=== PATIENT | female | born 1955 | race Caucasian/White ===

== ENCOUNTER 2018-08-28 01:35 | Emergency (ER) | payer OTHER ==
[~2018-08-28] VITALS: Ht 165.1 cm; Wt 102.1 kg
[2018-08-28 01:44] VITALS: BP 137/90
--- NOTE | 2018-08-28 01:48 | NUR ---
PT AMBULATED TO BED 11.
--- NOTE | 2018-08-28 01:52 | NUR ---
BIB DAUGHTER WITH REPORTS OF DIARRHEA X 4 DAYS. HX OF LOW K. STATES PATIENT HAS BEEN DRINKING PEDIALYTE AT HOME. PATIENT STATES PAIN IN LOWER ABD ON BOTH SIDES. PATIENT ON MONITOR , VSS. NO OTHER SYMPTOMS REPORTED. BED IN LOW LOCKED POSITION WITH SIDE RAILS X1. Addendum: 08/28/18 at 0216 by ADAM PATIENT ALSO REPORTS GENERALIZED WEAKNESS X 2 DAYS.
[2018-08-28] MEDS ORDERED: NACL 0.9% 1,000 ML IV ONE ×2 (01:55→03:25)
--- NOTE | 2018-08-28 02:01 | NUR ---
DR. CLARK BEDSIDE EVALUATING PT
--- NOTE | 2018-08-28 02:05 | NUR ---
BLOOD AND URINE COLLECTED AND SENT TO LAB.
[2018-08-28 02:12] LABS: APPEARANCE,URINE SL CLOUDY (CLEAR); BILIRUBIN,URINE 1+ (NEGATIVE); BLOOD, URINE NEGATIVE (NEGATIVE); COLOR,URINE ORANGE (YELLOW); LEUKOCYTE ESTERASE ,URINE NEGATIVE (NEGATIVE); NITRITE, URINE NEGATIVE (NEGATIVE); UGLUCOSE NEGATIVE (NEGATIVE)
[2018-08-28 02:12] LABS: BASOPHILS # (AUTO) 0.1 K/uL (0.00-0.22); BASOPHILS % (AUTO) 1.1 % (0.0-2.0); EOSINOPHILS # (AUTO) 0.3 K/uL (0-0.4); EOSINOPHILS % (AUTO) 6.2 % (0.0-4.0); HEMOGLOBIN 13.6 g/dL (12.0-16.0); LYMPHOCYTES # (AUTO) 1.5 K/uL (2.5-16.5); LYMPHOCYTES % (AUTO) 26.8 % (20.5-51.1); MEAN CORPUSCULAR HEMOGLOBIN 31 pg (27-31); MEAN CORPUSCULAR HGB CONC 34 g/dL (33-37); MEAN CORPUSCULAR VOLUME 92.3 fL (80-94); MONOCYTES % (AUTO) 17.2 % (1.7-9.3); NEUTROPHILS # (AUTO) 2.8 K/uL (1.8-7.7); NEUTROPHILS % (AUTO) 48.7 % (42.2-75.2); PLATELET COUNT (AUTO) 77 K/uL (140-450); RED BLOOD CELL COUNT(AUTO) 4.33 MIL/uL (4.20-5.40); RED CELL DISTRIBUTION WIDTH 14.5 % (11.6-13.7); WHITE BLOOD COUNT (AUTO) 5.6 K/uL (4.8-10.8)
[2018-08-28 02:22] LABS: WBC,URINE 0-5 /HPF (0-5)
[2018-08-28 02:23] LABS: URINE AMORPHOUS URATE 1+ /HPF (None Seen)
[2018-08-28 02:24] LABS: RBC,URINE 0-5 /HPF (0-5)
[2018-08-28 02:28] LABS: HYALINE CASTS, URINE 0-10 /LPF (None Seen)
[2018-08-28 02:33] LABS: ALBUMIN 2.8 g/dL (3.4-5.0); ANION GAP 13.1 (8-16); CARBON DIOXIDE 22.3 mmol/L (21-32); CREATININE 1.5 mg/dL (0.6-1.3); POTASSIUM 4.4 mmol/L (3.5-5.1); TOTAL BILIRUBIN 1.5 mg/dL (0.0-1.0)
--- NOTE | 2018-08-28 02:38 | NUR ---
PATEINT BACK FROM CT IN WHEELCHAIR, HOOKED BACK UP TO MONITOR.
[2018-08-28 04:13] VITALS: BP 148/60
== END 2018-08-28 04:13 | disposition home or self-care (01) ==
LOC: MED 01:35
DX: R19.7 Diarrhea, unspecified (principal)
CPT/HCPCS: 36415; 80053; 81001; 83690; 85025; 87086; 96360; 96361; 99284; J7030

== ENCOUNTER 2020-10-30 18:42 | Emergency (ER) | payer BC, OTHER ==
[~2020-10-30] VITALS: Ht 165.1 cm; Wt 113.4 kg
[2020-10-30 18:50] VITALS: BP 165/78
--- NOTE | 2020-10-30 18:50 | NUR ---
TO BED AMBULATORY
--- NOTE | 2020-10-30 19:10 | NUR ---
64 YO FEMALE BIB SELF ACCOMPANIED BY DAUGHTER. C/O HEADACHE 6/10 ACHING, NON RADIATING. ALSO C/O DIZZINESS. S/S STARTED ON FRIDAY. PT "JUST WANTS TO SIT DOWN, SAYS OBJECTS APPEAR UPSIDE DOWN, FEELS WEAK, ON SAT COULD NOT SEPERATE FINGERS". PT ALSO C/O NAUSEA SINCE FRIDAY, AND NOT EATING MUCH. DENIES VOMITING, DENIES DIARRHEA, DENIES SOB. PT DENIES SYNCOPAL EPISODES, ROM & SENSATION INTACT. A&OX4, RR EVEN AND UNLABORED. PMH: HTN, HIGH CHOLESTEROL ALLERGIES: NKDA
--- NOTE | 2020-10-30 19:24 | NUR ---
PATIENT LAYING IN BED LOCKED IN LOWEST POSITION X2 SIDE RAILS UP FOR PATIENT SAFETY. PATIENT REPORTS SHE FEELS DIZZY AND WEEK WITH A TEMPORAL HEADACHE 6/10. DENIES BLURRY VISION. PATIENT IS AOX4, GCS 15, MILD WEAKNESS TO BACK GRAY CLOTH WASHER, NO ARMS OR LEGS DRIFT. PATIWNT CONNECTED TO MONITOR AT 60HR, 96 O2, 16RR, 155/77 BP. WILL CONTINUE TO MONITOR. DAUGHTER AT BEDSIDE.
--- NOTE | 2020-10-30 19:28 | NUR ---
REPORTS RECEIVED FROM NIMISHA JOSEPH FROM CONTINUATION OF PATIENT CARE AT THIS TIME.
--- NOTE | 2020-10-30 19:28 | NUR ---
REPORT AND TRANSFER OF CARE ENDORSED TO NIMISHA ROSARIO.
[2020-10-30 20:16] LABS: BASOPHILS # (AUTO) 0.1 K/uL (0.00-0.22); BASOPHILS % (AUTO) 1.3 % (0.0-2.0); EOSINOPHILS # (AUTO) 0.4 K/uL (0-0.4); EOSINOPHILS % (AUTO) 8.9 % (0.0-4.0); HEMATOCRIT 36.6 % (36-48); HEMOGLOBIN 12.6 g/dL (12.0-16.0); LYMPHOCYTES # (AUTO) 1.4 K/uL (2.5-16.5); LYMPHOCYTES % (AUTO) 28.7 % (20.5-51.1); MEAN CORPUSCULAR HEMOGLOBIN 33 pg (27-31); MEAN CORPUSCULAR HGB CONC 35 g/dL (33-37); MEAN CORPUSCULAR VOLUME 95.1 fL (80-94); MONOCYTES # (AUTO) 0.8 K/uL (0.8-1.0); MONOCYTES % (AUTO) 16.5 % (1.7-9.3); NEUTROPHILS # (AUTO) 2.2 K/uL (1.8-7.7); NEUTROPHILS % (AUTO) 44.6 % (42.2-75.2); PLATELET COUNT (AUTO) 65 K/uL (140-450); RED BLOOD CELL COUNT(AUTO) 3.85 MIL/uL (4.20-5.40); RED CELL DISTRIBUTION WIDTH 14.7 % (11.6-13.7)
[2020-10-30 20:28] LABS: ALBUMIN 2.7 g/dL (3.4-5.0); ANION GAP 13.2 (8-16); CARBON DIOXIDE 21.8 mmol/L (21-32); TOTAL BILIRUBIN 2.1 mg/dL (0.0-1.0)
[2020-10-30 20:46] LABS: PROTHROMBIN TIME 11.2 secs (10.8-13.4)
--- NOTE | 2020-10-30 22:00 | NUR ---
PATIENT AMBULATED TO BATHROOM W STEADY GAIT.
[2020-10-30 22:22] LABS: APPEARANCE,URINE CLEAR (CLEAR); BILIRUBIN,URINE NEGATIVE (NEGATIVE); BLOOD, URINE NEGATIVE (NEGATIVE); COLOR,URINE YELLOW (YELLOW); LEUKOCYTE ESTERASE ,URINE NEGATIVE (NEGATIVE); NITRITE, URINE NEGATIVE (NEGATIVE); UGLUCOSE NEGATIVE (NEGATIVE)
[2020-10-30] MEDS: ASPIRIN 81 MG TAB.CHEW PO ONE (22:23)
--- NOTE | 2020-10-31 01:06 | NUR ---
NATALIA COMPLETED AND HANDED TO WANDA FROM LAB.
[2020-10-31] MEDS: LACTULOSE 20 GM/30 ML UDC PO ONE (02:38)
--- NOTE | 2020-10-31 03:00 | NUR ---
PATIENT LAYING IN BED L LATERAL POSITION, W EYES CLOSED. BED LOCKED IN LOWEST POSITION, X2 SIDERAILS UP FPR PATIENT SAFETY. PATIENT CONNECTED TO MONITOR W VSS. BREATHING EVEN AND UNLABORED. WILL CONTINUE TO MONITOR. DAUGHTER AT BEDSIDE.
--- NOTE | 2020-10-31 04:25 | NUR ---
Patient ambulated to bathroom w steady gait and slight assitance from daughter.
--- NOTE | 2020-10-31 05:50 | NUR ---
PATIENT AMBULATED TO BATHROOM W STEADY GAIT.
--- NOTE | 2020-10-31 07:22 | NUR ---
Pt report given to NIMISHA WASHINGTON. Transfer of care at this time.
--- NOTE | 2020-10-31 07:33 | NUR ---
Report called to NIMISHA Salazar from [facility] for transfer of patient care at this time.
--- NOTE | 2020-10-31 07:35 | NUR ---
ASSUMED CARE, REPORT FROM ABRAHAM BANSAL, PATIENT RECEIVED RESTING QUIETLY LAYING ON RIGHT SIDE WITH EVEN AND UNLABORED RESP, DENIES PAIN, VITAL SIGNS STABLE, DAUGHTER AT SIDE, AWAITING TRANSPORT TO [facility] FOR REPATRIATION AND FURTHER EVAL. REPORT CALLED TO RECEIVING NURSE BY ABRAHAM BANSAL.
--- NOTE | 2020-10-31 09:06 | NUR ---
UP TO BR WITH ASSIST, AMBULATED WITH SLOW STEADY GAIT, DENIES WEAKNESS OR DIZZINESS.
--- NOTE | 2020-10-31 09:25 | NUR ---
PREPARED FOR TRANSPORT, CONSENT INCHAIRT, FACILITY NOTIFIED OF REPATRIATION TRANSFER, BELONGINGS ARE WITH FAMILY,CHART PROVIDED TO MEDICS. VS UPDATED.
--- NOTE | 2020-10-31 09:30 | NUR ---
[facility] CREW ARRIVED FOR TRANSPORT, PATIENTS DX AND TELE REQUIRE AN ACLS CREW. TRANSPORT DELAYED WITH ETA OF 120 MINUTES FAMILY AND PATIENT UPDATED.
--- NOTE | 2020-10-31 11:56 | NUR ---
RESTING AWAITING ACLS TRANSPORT, LUNCH PROVIDED.
--- NOTE | 2020-10-31 14:09 | NUR ---
[facility]LS TRANSPORT TEAM HERE, REPORT PROVIDED, VS UPDATED. LOADED TO [facility] IN STABLE CONDITION. FAMILY PROVIDED ADDRESS AND DIRECTIONS TO [facility].
[2020-10-31 14:21] VITALS: BP 163/82
--- NOTE | 2020-10-31 14:24 | NUR ---
Patient to be transferred to [facility]. TRANSPORTED ACLS IN STABLE CONDITION.
== END 2020-10-31 14:21 | disposition short-term general hospital (02) ==
LOC: MED 18:42
DX: I21.4 Non-ST elevation (NSTEMI) myocardial infarction (principal); R53.1 Weakness; I10 Essential (primary) hypertension; E78.5 Hyperlipidemia, unspecified
CPT/HCPCS: 36415; 70450; 71045; 80053; 81003; 82140; 84484; 85025; 85610; 85730; 93005; 99285

== ENCOUNTER 2021-02-19 13:45 | Inpatient (IN) | payer BC, SELFPAY ==
[~2021-02-19] VITALS: Ht 165.1 cm; Wt 105.2 kg
[2021-02-19 14:16] VITALS: BP 173/97
[2021-02-19] MEDS ORDERED: MORPHINE SULFATE 2 MG/ML SYR IVP ONE (14:55)
[2021-02-19] MEDS ORDERED: NACL 0.9% 500 ML IV ONE (14:55)
[2021-02-19] MEDS ORDERED: ONDANSETRON 4 MG/2 ML VIAL IVP ONE ×2 (14:55→17:45)
--- NOTE | 2021-02-19 15:28 | NUR ---
LAB AT BEDSIDE.
--- NOTE | 2021-02-19 15:30 | NUR ---
65 Y/O F HERE FOR ABD PAIN, N/VFOR 2 DAYS. SHE ALSO COMPLAINS OF NO BM FOR 3DAYS EVEN AFTER TAKING STOOL SOFTENER. GRANDAUGTHER AT BEDSIDE TRANSLATING FOR THE PATIENT. LALY HS: HT, CHOLESTEROL, CIRRHOSIS
[2021-02-19 15:42] LABS: BASOPHILS % (AUTO) 0.5 % (0.0-2.0); EOSINOPHILS % (AUTO) 0.2 % (0.0-4.0); HEMATOCRIT 38.6 % (36-48); HEMOGLOBIN 13.3 g/dL (12.0-16.0); LYMPHOCYTES # (AUTO) 0.6 K/uL (2.5-16.5); LYMPHOCYTES % (AUTO) 8.3 % (20.5-51.1); MEAN CORPUSCULAR HEMOGLOBIN 33 pg (27-31); MEAN CORPUSCULAR HGB CONC 35 g/dL (33-37); MEAN CORPUSCULAR VOLUME 96.2 fL (80-94); MONOCYTES # (AUTO) 0.7 K/uL (0.8-1.0); MONOCYTES % (AUTO) 9.5 % (1.7-9.3); NEUTROPHILS # (AUTO) 5.9 K/uL (1.8-7.7); NEUTROPHILS % (AUTO) 81.5 % (42.2-75.2); PLATELET COUNT (AUTO) 72 K/uL (140-450); RED BLOOD CELL COUNT(AUTO) 4.01 MIL/uL (4.20-5.40); RED CELL DISTRIBUTION WIDTH 14.7 % (11.6-13.7); WHITE BLOOD COUNT (AUTO) 7.2 K/uL (4.8-10.8)
--- NOTE | 2021-02-19 15:50 | NUR ---
DR. DE LA ROSA AT PT BEDSIDE FOR ULTRASOUND IV.
[2021-02-19 15:57] LABS: ALBUMIN 2.8 g/dL (3.4-5.0); CARBON DIOXIDE 23.7 mmol/L (21-32); CREATININE 1.5 mg/dL (0.6-1.3); POTASSIUM 4.7 mmol/L (3.5-5.1); TOTAL BILIRUBIN 3.7 mg/dL (0.0-1.0)
[2021-02-19] MEDS ORDERED: ONDANSETRON 4 MG/2 ML VIAL ONE ×2 (16:06→17:44)
[2021-02-19] MEDS ORDERED: MORPHINE SULFATE 2 MG/ML SYR ONE (16:06)
--- NOTE | 2021-02-19 16:47 | NUR ---
65 Y/O FEMALE C/O GENERALIZED ABDOMINAL PAIN 8/10 DESCRIBES ACHING NON-RADIATING BOWEL SOUNDS ACTIVE X4. DENIES N/V X 3 DAYS. PMH: HTN, HLD, GASTRIC ULCER, HERNIA NKA
--- NOTE | 2021-02-19 17:29 | NUR ---
PATIENT GOING TO CT SCAN.
--- NOTE | 2021-02-19 17:30 | NUR ---
URINE TAKEN TO THE LAB.
[2021-02-19 17:44] LABS: APPEARANCE,URINE CLEAR (CLEAR); BILIRUBIN,URINE 1+ (NEGATIVE); BLOOD, URINE NEGATIVE (NEGATIVE); COLOR,URINE ORANGE (YELLOW); LEUKOCYTE ESTERASE ,URINE NEGATIVE (NEGATIVE); NITRITE, URINE NEGATIVE (NEGATIVE); UGLUCOSE NEGATIVE (NEGATIVE)
[2021-02-19] MEDS ORDERED: METOCLOPRAMIDE 10 MG/2 ML INJ VIAL IVP ONE (18:20)
[2021-02-19] MEDS ORDERED: PRAV20TA6 PO (18:54)
[2021-02-19] MEDS ORDERED: OMEG-12 PO (18:57)
[2021-02-19] MEDS ORDERED: POTA10TA70 PO (18:57)
[2021-02-19] MEDS ORDERED: OMEP1CAP27 PO (18:57)
[2021-02-19] MEDS ORDERED: LACT10PA2 PO (18:58)
[2021-02-19] MEDS ORDERED: PROP20TA29 PO (18:59)
[2021-02-19] MEDS ORDERED: LOSA100T1 PO (18:59)
[2021-02-19] MEDS ORDERED: SPIR50TA PO (19:00)
[2021-02-19] MEDS ORDERED: METOCLOPRAMIDE 10 MG/2 ML INJ VIAL ONE (19:37)
--- NOTE | 2021-02-19 20:30 | NUR ---
14 IN LONG# 48 FR NG tube placed to LEFT nare. Placement checked by auscultation of instilled air into stomach and aspiration of gastric contents. Tubing taped in place to prevent dislodging. Patient tolerated WELL.
--- NOTE | 2021-02-19 20:42 | NUR ---
XRAY AT BEDSIDE
--- NOTE | 2021-02-19 20:59 | NUR ---
Patient appears to be resting comfortably in bed. Vital Signs within normal limits. Respirations even and unlabored. BOTH BED RAILS DOWN AND BED AT LOWEST POSITION.
--- NOTE | 2021-02-19 21:38 | NUR ---
SUCTIONING DONE ON PT, PT TOLERATED WELL.
[2021-02-19] MEDS ORDERED: MAG SULF 2000 MG/WATER PREMIX 50 ML IV PRN (22:30)
[2021-02-19] MEDS ORDERED: METOCLOPRAMIDE 10 MG/2 ML INJ VIAL IVP PRN (22:30)
[2021-02-19] MEDS: NACL 0.9% 1,000 ML IV SCH (22:30)
--- NOTE | 2021-02-19 22:32 | NUR ---
Patient will be admitted to care of BLAISE. Admited to MED/SURG. Will go to room 104 B. Belongings list completed. Report to BLAISE BANSAL.
--- NOTE | 2021-02-19 22:34 | NUR ---
Patient appears to be resting comfortably in bed. Vital Signs within normal limits. Respirations even and unlabored. Addendum: 02/19/21 at 2237 by [email or web address] Patient appears to be resting comfortably in bed. Vital Signs within normal limits. Respirations even and unlabored. BOTH BED RAILS UP AND BED AT LOWEST POSITION.
--- NOTE | 2021-02-19 23:50 | NUR ---
PATIENT WAS BROUGHT TO [facility] FROM ER WITH NG TUBE IN PLACE AND CONNECTED TO INTERMITTENT SUCTION. AAOX4. NO ACUTE DISTRESS NOTED. RESPIRATION EVEN UNLABORED. CC: RLQ ABDOMINAL PAIN. N/V, NO BM FOR 2 DAYS. DX: SMALL BOWEL OBSTRUCTION. PLACED COMFORTABLY IN BED. LUNGS CLEAR ON AUSCULTATION. BOWEL SOUNDS PRESENT IN ALL 4 QUADRANT. ALL SAFETY PRECAUTIONS ARE IN PLACE. CALL LIGHT WITHIN REACH. MRSA SCREENING DONE. NO IV LINE NOTED. WILL CONTINUE TO MONITOR.
--- NOTE | 2021-02-20 01:00 | NUR ---
STARTED A NEW PERIPHERAL IV ON THE RIGHT FOREARM. TOLERATED WELL. IVF NS AT 80 ML STARTED.
[2021-02-20] MEDS: ONDANSETRON 4 MG/2 ML VIAL IVP PRN ×3 (01:25→21:50)
[2021-02-20] MEDS: NACL 0.9% 1,000 ML IV SCH ×3 (01:58→18:34)
--- NOTE | 2021-02-20 02:55 | NUR ---
PATIENT ACCIDENTALLY PULLED OUT NG TUBE. INSERTED A NEW NG TUBE AND CONNECTED TO INTERMITTENT SUCTION. STAT CXR DONE TO VERIFY NG TUBE PLACEMENT, RESULTED NG TUBE IN PLACE. NO ACUTE DISTRESS NOTED.
[2021-02-20 04:00] VITALS: BP 154/69
[2021-02-20 06:52] LABS: BASOPHILS % (AUTO) 0.4 % (0.0-2.0); EOSINOPHILS % (AUTO) 0.5 % (0.0-4.0); HEMATOCRIT 36.4 % (36-48); HEMOGLOBIN 12.5 g/dL (12.0-16.0); LYMPHOCYTES # (AUTO) 0.9 K/uL (2.5-16.5); LYMPHOCYTES % (AUTO) 17.1 % (20.5-51.1); MEAN CORPUSCULAR HEMOGLOBIN 33 pg (27-31); MEAN CORPUSCULAR HGB CONC 34 g/dL (33-37); MEAN CORPUSCULAR VOLUME 96.5 fL (80-94); MONOCYTES # (AUTO) 0.9 K/uL (0.8-1.0); MONOCYTES % (AUTO) 16.1 % (1.7-9.3); NEUTROPHILS # (AUTO) 3.5 K/uL (1.8-7.7); NEUTROPHILS % (AUTO) 65.9 % (42.2-75.2); PLATELET COUNT (AUTO) 70 K/uL (140-450); RED BLOOD CELL COUNT(AUTO) 3.78 MIL/uL (4.20-5.40); RED CELL DISTRIBUTION WIDTH 14.4 % (11.6-13.7); WHITE BLOOD COUNT (AUTO) 5.3 K/uL (4.8-10.8)
[2021-02-20 07:13] LABS: ALBUMIN 2.5 g/dL (3.4-5.0); ANION GAP 13.7 (8-16); CARBON DIOXIDE 24.7 mmol/L (21-32); CREATININE 1.5 mg/dL (0.6-1.3); MAGNESIUM 1.6 mg/dL (1.8-2.4); POTASSIUM 4.4 mmol/L (3.5-5.1); TOTAL BILIRUBIN 3.6 mg/dL (0.0-1.0)
--- NOTE | 2021-02-20 07:30 | NUR ---
ENDORSED TO AM NURSE FOR CONTINUITY OF CARE. PT IS STABLE.
[2021-02-20 08:00] VITALS: BP 166/82
--- NOTE | 2021-02-20 08:00 | NUR ---
PATIENT HAS BEEN SCREENED AND CATEGORIZED MODERATE NUTRITION RISK. PATIENT WILL BE SEEN WITHIN 3-5 DAYS OF ADMISSION. 02/20/21 02/24/[address]
--- NOTE | 2021-02-20 08:50 | NUR ---
PATIENT AWAKE AND ALERT. NO ACUTE DISTRESS NOTED. PATIENT ON ROOM AIR. SCHEDULED MEDICATION GIVEN. DAUGHTER AT BEDSIDE. ALL SAFETY MEASURES IN PLACE. CALL LIGHT WITHIN REACH. WILL CONTINUE TO MONITOR.
[2021-02-20] MEDS ORDERED: PANTOPRAZOLE 40 MG INJ VIAL IVP SCH (09:00)
[2021-02-20] MEDS ORDERED: hydrALAZINE 20 MG/ML VIAL IVP PRN (09:00)
--- NOTE | 2021-02-20 09:00 | NUR ---
INFORM DR. MODI OF BLOOD PRESSURE OF 166/89 AND MD ASKED IF PT ON BP MEDS AT HOME INFORM THAT PT ON BP MEDS BUT NO NEW ORDER DUE TO NPO.
--- NOTE | 2021-02-20 10:47 | NUR ---
PT NOTED WITH VOMITING GIVEN ZOFRAN ORDERED.
--- NOTE | 2021-02-20 12:20 | NUR ---
PT ALERT NOT ON ANY DISTRESS . STILL NOTED WITH NAUSEA. SAFETY MEASURE IN PLACE. CALL LIGHT WITH IN EASY REACH. DAUGHTER AT BED SIDE. CALL LIGHT WITH IN REACH.
--- NOTE | 2021-02-20 14:25 | NUR ---
PT SLEEPING. NOT ON ANY DISTRESS . SAFETY MEASURE IN PLACE. CALL LIGHT WITH IN EASY REACH. DAUGHTER AT BED SIDE. CALL LIGHT WITH IN REACH.
[2021-02-20 16:00] VITALS: BP 169/78
--- NOTE | 2021-02-20 16:30 | NUR ---
PT ALERT ON STABLE CONDITION NOT ON ANY DISTRESS. SAFETY MEASURE IN PLACE. CALL LIGHT WITH IN EASY REACH. DAUGHTER AND SON AT BED SIDE. NO COMPLAIN OF NAUSEA OR VOMITING. DR. ELKINS REMOVED NGT SUCTION TOLERATED WELL.
[2021-02-20] MEDS: PIPERACILLIN/TAZOBACTAM 4.5 GM in DEXTROSE 5% 100 ML IV SCH (18:21)
--- NOTE | 2021-02-20 18:37 | NUR ---
DAUGHTER AT BED SIDE WITH PT REQUESTING FOR BED SIDE COMMODE REQUEST GRANTED. RESIDENT SITTING EATING WITH THE ASSISTANCE FROM DAUGHTER DUE TO TREMORS OF HER HAND. RESIDENT ON STABLE CONDITION . SAFETY MEASURE IN PLACE. CALL LIGHT WITH IN EASY REACH. WILL CONTINUE TO MONITOR.
--- NOTE | 2021-02-20 19:20 | NUR ---
PT ON STABLE CONDITION. GAVE REPORT NO NURSE NURSE FOR CONTINUITY OF CARE.
--- NOTE | 2021-02-20 19:21 | NUR ---
RECEIVED REPORT FROM AM NURSE. PATIENT IS AWAKE, NO S/S OF RESPIRATORY DISTRESS. RESPIRATION REGULAR UNLABORED. IVF NS RUNNING AT 80 ML ON THE RIGHT FOREARM. NO COMPLAINTS OF PAIN. SKIN WARM AND DRY TO THE TOUCH. DAUGHTER AT BEDSIDE. ON CLEAR LIQUID DIET. ALL SAFETY PRECAUTIONS ARE IN PLACE. CALL LIGHT WITHIN REACH.
[2021-02-20] MEDS: ATORVASTATIN 20 MG TAB PO SCH (20:56)
[2021-02-20] MEDS: ACETAMINOPHEN 325 MG TAB PO PRN (20:56)
--- NOTE | 2021-02-20 20:56 | NUR ---
DUE SCHEDULED MEDICATION GIVEN ORDERED.
[2021-02-20] MEDS ORDERED: MORPHINE SULFATE 2 MG/ML SYR IVP PRN (22:10)
--- NOTE | 2021-02-20 22:15 | NUR ---
PATIENT IN SEVERE ABDOMINAL PAIN 12/08 , PLACED A CALL TO DR. DÍAZ BLADDER TIER , CALLED BACK AFTER 2 MINS WITH ORDER OF MORPHIN 2MG EVERY 4 HRS PRN FOR SEVERE PAIN. ORDER NOTED AND CARRIED OUT.
[2021-02-21] VITALS: BP 165/74
[2021-02-21] MEDS: PIPERACILLIN/TAZOBACTAM 4.5 GM in DEXTROSE 5% 100 ML IV SCH ×3 (00:08→12:09)
--- NOTE | 2021-02-21 00:08 | NUR ---
ZOSYN ADMINISTERED PER MD ORDERED. NO SOB NOTED.
--- NOTE | 2021-02-21 02:08 | NUR ---
ROUNDED PT, PATIENT IS SLEEPING. NO S/S OF RESPIRATORY DISTRESS. CALL LIGHT WITHIN REACH.
[2021-02-21] MEDS: NACL 0.9% 1,000 ML IV SCH ×2 (04:36→14:36)
[2021-02-21] MEDS: ONDANSETRON 4 MG/2 ML VIAL IVP PRN ×4 (05:37→13:01)
--- NOTE | 2021-02-21 06:00 | NUR ---
STILL WAITING FOR MD CALL BACK, MADE REGINA ODOM AWARE OF THE SITUATION Addendum: 02/21/21 at 0624 by Robin Downing RN WRONG PATIENT
--- NOTE | 2021-02-21 06:15 | NUR ---
PAGED DR. CASTANEDA AGAIN. AWAITING FOR HIS CALL Addendum: 02/21/21 at 0624 by Robin Downing RN WRONG PATIENT
[2021-02-21 06:54] LABS: BASOPHILS % (AUTO) 0.4 % (0.0-2.0); EOSINOPHILS # (AUTO) 0.1 K/uL (0-0.4); EOSINOPHILS % (AUTO) 3.3 % (0.0-4.0); HEMATOCRIT 36.1 % (36-48); HEMOGLOBIN 12.5 g/dL (12.0-16.0); LYMPHOCYTES # (AUTO) 0.9 K/uL (2.5-16.5); LYMPHOCYTES % (AUTO) 22.1 % (20.5-51.1); MEAN CORPUSCULAR HEMOGLOBIN 33 pg (27-31); MEAN CORPUSCULAR HGB CONC 35 g/dL (33-37); MEAN CORPUSCULAR VOLUME 96.4 fL (80-94); MONOCYTES # (AUTO) 0.8 K/uL (0.8-1.0); MONOCYTES % (AUTO) 19.8 % (1.7-9.3); NEUTROPHILS # (AUTO) 2.1 K/uL (1.8-7.7); NEUTROPHILS % (AUTO) 54.4 % (42.2-75.2); PLATELET COUNT (AUTO) 85 K/uL (140-450); RED BLOOD CELL COUNT(AUTO) 3.74 MIL/uL (4.20-5.40); RED CELL DISTRIBUTION WIDTH 14.9 % (11.6-13.7); WHITE BLOOD COUNT (AUTO) 3.9 K/uL (4.8-10.8)
[2021-02-21 07:05] LABS: ALBUMIN 2.4 g/dL (3.4-5.0); ANION GAP 14.6 (8-16); CARBON DIOXIDE 25.1 mmol/L (21-32); CREATININE 1.8 mg/dL (0.6-1.3); MAGNESIUM 2.3 mg/dL (1.8-2.4); POTASSIUM 4.7 mmol/L (3.5-5.1); TOTAL BILIRUBIN 3.4 mg/dL (0.0-1.0)
--- NOTE | 2021-02-21 07:20 | NUR ---
RECEIVED REPORT FROM INSPECTOR ALUMINUM BOAT NURSE FOR CONTINUITY OF CARE. PT. AWAKE AND ALERT NO ACUTE DISTRESS NOTED. PT. HAS RIGHT FA 22 ON NS AT 100ML/ HOUR. CALL LIGHT WITH IN REACH . ALL SAFETY MEASURE IN PLACE. WILL CONTINUE TO MONITOR. Addendum: 02/21/21 at 1139 by Olinda Ware LVN INCORRECT CHARTING ON PT.-PT. NOTED TO BE SLEEPING.NO ACUTE DISTRESS NOTED. PT. HAS RIGHT FA 22 ON NS AT 100ML/ HOUR. CALL LIGHT WITH IN REACH . ALL SAFETY MEASURE IN PLACE. WILL CONTINUE TO MONITOR.
--- NOTE | 2021-02-21 07:20 | NUR ---
ENDORSED PATIENT TO AM SHIFT FOR CONTINUITY OF CARE.
--- NOTE | 2021-02-21 07:57 | NUR ---
WENT TO CHECK ON PATIENT. NOTED PATIENT TO BE LETHARGIC. PATIENT AROUSED AFTER STERNAL RUB. CALLED CHARGE NURSE TO HELP ASSESSING PATIENT. CHARGE NURSE STATED THAT DURING REPORT NIGHT CHARGE NURSE STATED PATIENT MENTAL STATUS HAD CHANGED AND MD WAS AWARE.
[2021-02-21 08:00] VITALS: BP 113/67
--- NOTE | 2021-02-21 08:06 | NUR ---
NOTIFIED DR. TAMAYO ABOUT PATIENT MENTAL STATUS CHANGE AND AMMONIA LEVEL 248.
--- NOTE | 2021-02-21 08:10 | NUR ---
PER DR. TAMAYO INSERT NG TUBE AND INCREASE LACTULOSE TO 20 MG TID.
--- NOTE | 2021-02-21 08:20 | NUR ---
NG TUBE INSERTED. CXR CALLED STAT TO CHECK FOR PLACEMENT. PATIENT CONTINUE TO BE LETHARGIC. BLOOD PRESSURE 115/70, HR 98, O2 SATING 98%, RR 20. Addendum: 02/21/21 at 1152 by Emily Saeed RN RN PATIENT HAD TWO EPISODES OF EMESIS. RESIDUAL PRESENT UPON INSERTING NG TUBE.
--- NOTE | 2021-02-21 08:30 | NUR ---
CXR DONE. NG TUBE IN PLACE. CONFIRMED. PATIENT DAUGHTER ZURI NOTIFIED.
[2021-02-21] MEDS: LACTULOSE 20 GM/30 ML UDC PO SCH ×3 (08:55→17:00)
[2021-02-21] MEDS ORDERED: LOSARTAN 50 MG TAB PO SCH (09:00)
[2021-02-21] MEDS ORDERED: LACTULOSE 20 GM/30 ML UDC PO SCH (09:00)
[2021-02-21] MEDS ORDERED: PROPRANOLOL 20 MG TAB PO SCH (09:00)
[2021-02-21] MEDS: SPIRONOLACTONE 50 MG TAB PO SCH (09:00)
[2021-02-21] MEDS: PANTOPRAZOLE 40 MG TABEC PO SCH (09:00)
--- NOTE | 2021-02-21 09:00 | NUR ---
PATIENT SLEEPING. NO ACUTE DISTRESS NOTED. PATIENT. DAUGHTER AT BEDSIDE. DAUGHTER EXPRESSED CONCERNS OF HER MOTHER CONDITION FELLING THAT HER NEEDS WERE NOT FOLLOW THROUGH BY THE DOCTOR CARRYING ON HER CASE. ALL SAFETY MEASURES IN PLACE. CALL LIGHT WITHIN REACH. WILL CONTINUE TO MONITOR.
--- NOTE | 2021-02-21 09:55 | NUR ---
RETURNED THE CALL BACK TO DR. ELKINS OFFICE.
--- NOTE | 2021-02-21 10:12 | NUR ---
KUB BEING DONE AT BEDSIDE.PATIENT SLEEPING. NO ACUTE DISTRESS NOTED. PATIENT. DAUGHTER AT BEDSIDE. ALL SAFETY MEASURES IN PLACE. CALL LIGHT WITHIN REACH. WILL CONTINUE TO MONITOR.
--- NOTE | 2021-02-21 11:18 | NUR ---
RECEIVED CALL FROM DR. ELKINS. NO NEW ORDER.
--- NOTE | 2021-02-21 12:34 | NUR ---
NOTIFIED DR. TAMAYO THAT PATIENT HAS NOT HAD ANY BM AND CONTINUE TO BE LETHARGIC. ALSO THAT PATIENT DAUGHTER IS CONCERN WITH NEW SIGN OF INVOLUNTARY JAW MOVEMENT. PER DOCTOR REPEAT AMMONIA TOMORROW ONLY.
--- NOTE | 2021-02-21 12:53 | NUR ---
PATIENT SLEEPING. NO ACUTE DISTRESS NOTED. PATIENT. BP 120/70, HR 101, RR 20, O2 SATING 99%. DAUGHTER AT BEDSIDE. ALL SAFETY MEASURES IN PLACE. CALL LIGHT WITHIN REACH. WILL CONTINUE TO MONITOR.
[2021-02-21] MEDS ORDERED: CLINICAL MONITORING MC PRN (13:25)
--- NOTE | 2021-02-21 13:40 | NUR ---
PATIENT HAD ANOTHER EPISODE OF EMESIS. BP 124/71, HR 102, RR 21, O2 SATING 99%.
--- NOTE | 2021-02-21 14:21 | NUR ---
DC PLANNIN YRS OLD FEMALE PATIENT WAS ADMITTED FROM HOME WITH A DX OF SBO. PATIENT HAS A HX OF LIVER CIRRHOSIS, HLD AND HTN. CT ABD/PELVIS SHOWED SBO. CXR NEGATIVE . NGT TO SUCTION. ADMINISTERED IVF, IV ABX ZOSYN AND CONTINUED HOME MEDS. SEEN BY DR ELKINS SURGEON ORDERED SBFT. CONSULTED WITH RESIDENTIAL DOOR UNIT INSTALLER. DC PLAN TO GO HOME WHEN STABLE. CM TO FOLLOW Addendum: 02/26/21 at 1344 by Jeny Dorado RN DC PLANNING: DISCUSSED THE DC PLAN WITH DR VLEÁSQUEZ, AWAITING FOR C-DIFF RESULT. CALLED LAB STATED IT'S A SEND OUT AND THE RESULT WILL BE IN TOMORROW. CONTINUE IV ABX ZOSYN. GI, SURGEON AND NEPHRO ARE FOLLOWING. CM TO FOLLOW Addendum: 02/27/21 at 1657 by Jeny Dorado RN DC PLANNING: CALLED PATIENT'S DAUGHTER [phone] VELÁSQUEZ DISCUSSED PATIENT CLINICALS AND RECOMMENDATIONS ANSWERED ALL QUESTION. CALLED INSURANCE [employer] [phone] OPT 1 SPOKE WITH ASHU DUNHAM STATED PATIENT IS OUT OF THE AREA IF SHE WANTS TO GO TO SNF IT HAS TO BE IN [facility]. DISCUSSED WITH ZURI SHE STATED DIDN'T WANT HER MOM TO GO TO SNF, PREFERRED TO TAKE HER HOME WITH HOME HEALTH , SHE ALSO STATED SHE WILL CALL THE INSURANCE AND WILL ASK WHAT SHE NEEDS. NOTIFIED DR RIOS, NOTIFIED ASHU AT [employer] AND FAXED THE HOME HEALTH ORDER. CM TO FOLLOW Addendum: 02/28/21 at 1334 by Jeny Dorado RN DC PLANNING: RECEIVED A CALL FROM PT'S DAUGHTER SPOKE WITH ZURI STATED SHE IS UNABLE TO HELP HEM MOM AND OK TO SEND HER TO SNF, SPOKE WITH PT'S SON MATHIEU [phone] ALSO AGREED FOR HIS MOM TO GO TO SNF AND PREFERRED [facility]. I EXPLAINED THAT IF [facility] ARE CONTRACTED WITH THE INSURANCE [employer]. FAXED ALL PAPERWORK TO [facility]. CM TO FOLLOW Addendum: 03/01/21 at 1155 by Jeny Dorado RN DC PLANNING: ROLY HAD A LONG DISCUSSION WITH PT'S DAUGHTERS ZURI AND HER SISTER. ADDRESSED THEIR ISSUES AND CONCERNS. DISCUSSED THE PT'S CONDITION WITH DR ELKINS AND DR VELÁSQUEZ BECAUSE OF HIGH RISK FOR SURGICAL INTERVENTION AND NOT CONTRACTED FACILITIES. MD'S RECOMMENDED TO TRANSFER HER TO THE CONTRACTED FACILITIES. CALLED [facility] SPOKE WITH ASHU DUNHAM STATED WILL FAX TO ALL CONTRACTED FACILITIES AND REQUESTED FOR PEER TO PEER. PROVIDE DR VELÁSQUEZ AND DR ELKINS'S NUMBER. PER FAMILY REQUEST TO FAX [facility], CALLED [facility] SPOKE WITH JABIER TAPIAACCOUNT SUPPORT ANALYST, STATED THEY ARE NOT TAKING ANY PATIENT, CURRENTLY THEY ARE AT THE [facility] PATIENT'S ARE WAITING IN THE ER TO BE ADMITTED. CALLED [facility] [phone] SPOKE WITH ADMITTED HAS TO HAVE ADMITTING DR. CALLED PT'S DAUGHTER ZURI TO ASK HER PCP IS GOING THERE. PER ZURI WILL CALL PCP AND CALL ME BACK. CM TO FOLLOW Addendum: 03/01/21 at 1530 by Jeny Dorado RN DC PLANNING: PER DAUGHTER ZURI STATED WANTED TO TAKE PATIENT AMA TO [facility]. DISCUSSED THE HIGH RISK OF TAKING PATIENT AMA HOW EVER SHE STATED IF WE ARE NOT TRANSFERRING WILL TAKE HER OUT DR VELÁSQUEZ DISCUSSED WITH THE FAMILY WELL. CALLED ASHU DUNHAM AT [facility] STATED PEER TO PEER DONE WITH DR BONNY MEAD AND DR DRAPER DIDN'T APPROVE FOR TRANSFER HOWEVER I EXPLAINED PT'S CONDITION AND FAXED THE SURGEON NOTES AND LATEST CT ABD/PELVIS RESULT. DR DRAPER WILL DISCUSS WITH THE [facility] TEACHER OF THE HEARING IMPAIRED WILL REVIEW IT AGAIN AND CALL BACK. AND ALSO MARCUS STATED THAT ZURI CALLED HER AND TOLD HER THAT WILL TAKE HER MOM OUT AMA AND REQUESTED TO CALL HER BACK ONCE PT SIGNED AMA . CM TO FOLLOW Addendum: 03/01/21 at 1652 by Jeny Dorado RN DC PLANNING: CALLED [facility] SPOKE WITH ASHU DUNHAM STATED HER TEACHER OF THE HEARING IMPAIRED APPROVED AND RECOMMENDED TO TRANSFER TO [facility] THAT HAS A SPECIALIST SURGEON FOR HER CONDITION BUT THERE IS NO BED AT THIS TIME. I CALLED ZURI NOTIFIED HER ,STILL INSIST AND SIGNED AMA AND STATED WILL TAKE HER MOTHER TO [facility]. CALLED BACK ASHU AND NOTIFIED HER AND NOTIFIED DR VELÁSQUEZ.
[2021-02-21] MEDS: RIFAXIMIN 550 MG TAB PO SCH ×2 (14:32→20:36)
--- NOTE | 2021-02-21 15:40 | NUR ---
CLARIFIED WITH CHARGE NURSE IF NG TUBE SHOULD BE REINSERTED. ADVISED THAT REINSERTING NG TUBE WAS NOT NECESSARY. PLACEMENT CHECKED BY AUSCULTATION AND CXR.
--- NOTE | 2021-02-21 15:42 | NUR ---
NOTIFY DR. ELKINS PATIENT CONTINUES TO HAVE EPISODES OF EMESIS.
[2021-02-21 16:00] VITALS: BP 149/63
--- NOTE | 2021-02-21 16:03 | NUR ---
PER DR. ELKINS START PATIENT ON HIGH INTERMITTENT SUCTION.
--- NOTE | 2021-02-21 17:06 | NUR ---
PATIENT SLEEPING. NO ACUTE DISTRESS NOTED. NO EPISODE OF EMESIS. PATIENT. BP 134/78, HR 102, RR 20, O2 SATING 99%. DAUGHTER AT BEDSIDE. INTERMITTENT SUCTION GOING FROM NG TUBE. ALL SAFETY MEASURES IN PLACE. CALL LIGHT WITHIN REACH. WILL CONTINUE TO MONITOR
--- NOTE | 2021-02-21 17:15 | NUR ---
PT ASLEEP. INTERMITTENT SUCTIONING IN PLACE.GAVE REPORT TO NIGHT NURSE FOR CONTINUITY OF CARE.
--- NOTE | 2021-02-21 17:27 | NUR ---
UPDATED DR. ELKINS ON PATIENT CONDITION. PER DR. ELKINS REQUEST PATIENT TO CONTINUE ON HIGH INTERMITTENT SUCTION.
[2021-02-21] MEDS ORDERED: LACTULOSE 20 GM/30 ML UDC PR ONE (17:30)
--- NOTE | 2021-02-21 17:55 | NUR ---
PT NOT GIVEN LACTULOSE ORAL DUE LACTULOSE GIVEN VIA RECTALLY. TOLERATED WELL. NO EMESIS. NO BM YET AT THIS TIME. INTERMITTENT SUCTIONING IN PLACE. DAUGHTER AT BED SIDE. ALL SAFETY MEASURE IN PLACE. CALL LIGHT WITH IN REACH.MONITOR FREQUENTLY.
[2021-02-21] MEDS: PIPERACILLIN/TAZOBACTAM 3.375 GM in DEXTROSE 5% 50 ML IV SCH (18:06)
--- NOTE | 2021-02-21 18:40 | NUR ---
CALLED ROTARY FURNACE OPERATOR MARIA E TO ASKED FOR SEQUENTIAL COMPRESSION DEVISE FOR PT.
--- NOTE | 2021-02-21 19:07 | NUR ---
PT ASLEEP. APPLIED SEQUENTIAL COMPRESSION DEVISE TOLERATED WELL AND PROPERLY WORKING . SAFETY IN PLACE. NEED ANTICIPATED MONITOR FREQUENTLY.
--- NOTE | 2021-02-21 19:20 | NUR ---
RECEIVED REPORT FROM AM SHIFT NURSE FOR CONTINUITY OF CARE. PATIENT IS LETHARGIC, NO S/S OF RESPIRATORY DISTRESS. RESPIRATION REGULAR UNLABORED. IVF NS RUNNING AT 100ML/HR ON THE RIGHT UPPER ARM.SKIN WARM AND DRY TO THE TOUCH. FAMILY AT BEDSIDE.ALL SAFETY PRECAUTIONS ARE IN PLACE. CALL LIGHT WITHIN REACH.WILL CONTINUE TO MONITOR.
[2021-02-21] MEDS: ATORVASTATIN 20 MG TAB PO SCH (20:35)
--- NOTE | 2021-02-21 20:40 | NUR ---
DUE MEDICATIONS GIVEN. PT TOLERATED WELL. PT STILL LETHARGIC. NO S/SX OF RESPIRATORY DISTRESS. ALL PRECAUTIONS IN PLACE. WILL CONTINUE TO MONITOR.
[2021-02-21] MEDS: ALBUMIN HUMAN 25% 100 ML IV SCH (22:43)
--- NOTE | 2021-02-21 22:43 | NUR ---
ALBUMIN GIVEN PER MD ORDER. PT CONFUSED.PT BREATHING UNLABORED AND EQUAL. DRAINAGE FROM PT'S NGT IS AT 650CC. ALL PRECAUTIONS IN PLACE. WILL CONTINUE TO MONITOR.
[2021-02-22] VITALS (12 sets, daily range): BP systolic 145–175; BP diastolic 71–121
[2021-02-22] MEDS: NACL 0.9% 1,000 ML IV SCH (00:36)
--- NOTE | 2021-02-22 00:50 | NUR ---
PATIENT SLEEPING. NO ACUTE DISTRESS NOTED. NO EPISODE OF EMESIS. PATIENT. BP 156/77, HR 138, RR 20, O2 SATING 100%. DAUGHTER AT BEDSIDE. HIGH INTERMITTENT SUCTION GOING FROM NG TUBE. ALL SAFETY MEASURES IN PLACE. CALL LIGHT WITHIN REACH. WILL CONTINUE TO MONITOR
[2021-02-22] MEDS: PIPERACILLIN/TAZOBACTAM 3.375 GM in DEXTROSE 5% 50 ML IV SCH ×4 (01:41→18:10)
--- NOTE | 2021-02-22 03:45 | NUR ---
PT HAD LARGE BLOODY STOOL. PT CLEANED AND CHANGED. PT TOLERATED WELL. PT BREATHING UNLABORED AND EQUAL. PT VITAL SIGNS ARE BP 151/91, TX 136, RR 23, O2 SAT 95%.ALL PRECAUTIONS IN PLACE. WILL CONTINUE TO MONITOR.
[2021-02-22 05:58] LABS: ALBUMIN 3.2 g/dL (3.4-5.0); ANION GAP 20.2 (8-16); CARBON DIOXIDE 20.1 mmol/L (21-32); CREATININE 2.6 mg/dL (0.6-1.3); MAGNESIUM 2.5 mg/dL (1.8-2.4); POTASSIUM 3.3 mmol/L (3.5-5.1); TOTAL BILIRUBIN 3.4 mg/dL (0.0-1.0)
[2021-02-22 06:19] LABS: BASOPHILS % (AUTO) 0.1 % (0.0-2.0); EOSINOPHILS % (AUTO) 0.2 % (0.0-4.0); HEMATOCRIT 37.6 % (36-48); HEMOGLOBIN 12.8 g/dL (12.0-16.0); LYMPHOCYTES % (AUTO) 13.4 % (20.5-51.1); MEAN CORPUSCULAR HEMOGLOBIN 33 pg (27-31); MEAN CORPUSCULAR HGB CONC 34 g/dL (33-37); MEAN CORPUSCULAR VOLUME 97.8 fL (80-94); MONOCYTES # (AUTO) 1.1 K/uL (0.8-1.0); MONOCYTES % (AUTO) 15.9 % (1.7-9.3); NEUTROPHILS # (AUTO) 5.1 K/uL (1.8-7.7); NEUTROPHILS % (AUTO) 70.4 % (42.2-75.2); PLATELET COUNT (AUTO) 105 K/uL (140-450); RED BLOOD CELL COUNT(AUTO) 3.85 MIL/uL (4.20-5.40); WHITE BLOOD COUNT (AUTO) 7.2 K/uL (4.8-10.8)
--- NOTE | 2021-02-22 07:00 | NUR ---
PT STABLE. NO ACUTE EVENTS THROUGHOUT THE NIGHT. PT NOT IN ANY DISTRESS. NO COMPLAINS AT THIS TIME. ALL NEEDS ATTENDED.ALL PRECAUTIONS IN PLACE. CALL LIGHT WITHIN REACH.WILL ENDORSE TO AM SHIFT NURSE.
--- NOTE | 2021-02-22 07:31 | NUR ---
PT STABLE. ENDORSED TO AM SHIFT NURSE FOR CONTINUITY OF CARE.
--- NOTE | 2021-02-22 07:50 | NUR ---
Patient noted to be resting. Safety co measures in place, bed lowered and patient has no further needs.
[2021-02-22] MEDS: PANTOPRAZOLE 40 MG TABEC PO SCH (09:00)
--- NOTE | 2021-02-22 09:22 | NUR ---
PT ARRIVED AT UNIT VIA BED, TRANSFERRED PT TO ICU BED, TOLERATED WELL, PT ALTERED, AAOX0, SLEEPING, IV TO LEFT WRIST 20G, AND R UPPER ARM 24G, IV INFILTRATED, WILL PUT IN NEW IVS. NGT IN PLACE TO LEFT NARES, PATENT INTACT, WILL CONNECT TO SUCTION, INITIAL ASSESSMENT DONE, ALL SAFETY PRECAUTION IN PLACE, WILL CONTINUE TO MONITOR.
[2021-02-22] MEDS ORDERED: KCL 20 MEQ/WATER INJ PREMIX 100 ML IV ONE (09:35)
--- NOTE | 2021-02-22 09:46 | NUR ---
Patient moved to ICU for higher level of care. patient unresponsive to verbal and sternal rub.
[2021-02-22] MEDS: ALBUMIN HUMAN 25% 100 ML IV SCH ×3 (09:52→16:52)
[2021-02-22] MEDS: SPIRONOLACTONE 50 MG TAB PO SCH (09:52)
[2021-02-22] MEDS: LACTULOSE 20 GM/30 ML UDC PO SCH ×3 (09:52→16:53)
[2021-02-22] MEDS: DEXT 5% / NACL 0.45% 1,000 ML IV SCH ×3 (09:54→21:57)
[2021-02-22] MEDS: RIFAXIMIN 550 MG TAB PO SCH ×2 (10:01→21:00)
[2021-02-22] MEDS ORDERED: PANTOPRAZOLE 40 MG INJ VIAL IVP SCH (10:10)
--- NOTE | 2021-02-22 10:30 | NUR ---
NEW IV INSERTED TO RIGHT HAND 22G AND LEFT UPPER ARM 22G, PT TOLERATED WELL, IV TO R UPPER ARM 24G TAKEN OUT, CATH INTACT, IV TO L WRIST 22G TAKEN OUT, CATH INTACT, PT TOLERATED WELL, WILL CONTINUE TO MONITOR.
--- NOTE | 2021-02-22 11:05 | NUR ---
DR OSWALD AT BEDSIDE, EVALUATING PT.
[2021-02-22] MEDS: hydrALAZINE 20 MG/ML VIAL IVP PRN ×3 (11:10→22:30)
[2021-02-22] MEDS ORDERED: SODIUM BICARBONATE 8.4% PFS 50 MEQ/50 ML SYR IVP SCH (11:20)
--- NOTE | 2021-02-22 11:23 | NUR ---
PT DAUGHTER ZURI SIGNED CONSENT FOR PICC, STATED UNDERSTANDING, DR OSWALD ALREADY SPOKE TO DAUGHTER PRIOR TO CONSENT SIGNED.
[2021-02-22 11:30] LABS: HEMATOCRIT 37.2 % (36-48); HEMOGLOBIN 12.7 g/dL (12.0-16.0); MEAN CORPUSCULAR HEMOGLOBIN 34 pg (27-31); MEAN CORPUSCULAR HGB CONC 34 g/dL (33-37); PLATELET COUNT (AUTO) 79 K/uL (140-450); RED BLOOD CELL COUNT(AUTO) 3.76 MIL/uL (4.20-5.40); WHITE BLOOD COUNT (AUTO) 7.7 K/uL (4.8-10.8)
[2021-02-22 11:50] LABS: LYMPHOCYTES % (MANUAL) 10 % (20-46); MONOCYTES % (MANUAL) 10 % (5-12)
--- NOTE | 2021-02-22 11:52 | NUR ---
SPOKE TO DR OSWALD REGARDING ABG RESULT AND LACTIC 4.9, PER DR OSWALD TO CONTINUE WITH ORDERS NO CHANGES AT THIS TIME.
--- NOTE | 2021-02-22 13:28 | NUR ---
02/22/21 RD INITIAL ASSESSMENT COMPLETED PLEASE REFER TO NUTRITION ASSESSMENT UNDER CARE ACTIVITY FOR ESTIMATED NUTRITIONAL NEEDS. RD RECOMMENDATIONS: 1. CONTINUE NPO MEDICALLY APPROPRIATE/PER MD. 2. IF PT WILL NEED TUBE FEEDING CONSIDER, CONSIDER JEVITY 1.2 AT GOAL RATE OF 65 ML/HR, START AT 25 ML/HR AND ADVANCE TOLERATED TO GOAL RATE. -AT GOAL RATE TUBE FEEDING WILL PROVIDE 1872 KCAL AND 87 GM OF PROTEIN, WHICH IS ADEQUATE TO MEET NUTRITIONAL NEEDS. 3. IF PT IS MEDICALLY STABLE FOR ORAL INTAKE, CONSIDER CARDIAC DIET WITH TEXTURE MODIFICATIONS PER MD/CHILD AND FAMILY SERVICES WORKER. 4. RD WILL F/U 2-3 DAYS; HIGH RISK JOHAN NAIR, RD
--- NOTE | 2021-02-22 14:23 | NUR ---
CALLED DR OSWALD REGARDING PT LACTIC ACID 5.1, PER NO CHANGES IN ORDER JUST CONTINUE WITH IV HYDRATION. WILL CONTINUE WITH ORDERS.
--- NOTE | 2021-02-22 16:33 | NUR ---
PICC RN AT BEDSIDE TO INSERT PICC LINE. WILL CONTINUE TO MONITOR.
--- NOTE | 2021-02-22 18:00 | NUR ---
RECEIVED RESULT OF CXR ADVANCED NGT 10CM PER XRAY RESULT, WILL CONTINUE TO MONITOR.
--- NOTE | 2021-02-22 18:11 | NUR ---
PT BP 175/82, HYDRALAZINE PRN GIVEN PER DR ORDER, NO DISTRESS NOTED, WILL CONTINUE TO MONITOR.
[2021-02-22 18:35] LABS: BASOPHILS % (AUTO) 0.1 % (0.0-2.0); EOSINOPHILS % (AUTO) 0.1 % (0.0-4.0); HEMATOCRIT 29.3 % (36-48); HEMOGLOBIN 10.2 g/dL (12.0-16.0); LYMPHOCYTES # (AUTO) 1.1 K/uL (2.5-16.5); LYMPHOCYTES % (AUTO) 18.1 % (20.5-51.1); MEAN CORPUSCULAR HEMOGLOBIN 34 pg (27-31); MEAN CORPUSCULAR HGB CONC 35 g/dL (33-37); MEAN CORPUSCULAR VOLUME 97.7 fL (80-94); MONOCYTES # (AUTO) 0.8 K/uL (0.8-1.0); MONOCYTES % (AUTO) 13.1 % (1.7-9.3); NEUTROPHILS # (AUTO) 4.2 K/uL (1.8-7.7); NEUTROPHILS % (AUTO) 68.6 % (42.2-75.2); PLATELET COUNT (AUTO) 51 K/uL (140-450); RED CELL DISTRIBUTION WIDTH 14.8 % (11.6-13.7); WHITE BLOOD COUNT (AUTO) 6.1 K/uL (4.8-10.8)
--- NOTE | 2021-02-22 19:21 | NUR ---
ENDORSED PT TO WASTE AND BATTING WASTE CHOPPER NURSE FOR CONTINUOUS OF CARE.
[2021-02-22] MEDS: ATORVASTATIN 20 MG TAB PO SCH (21:00)
[2021-02-22] MEDS: PANTOPRAZOLE 40 MG INJ VIAL IVP SCH (21:00)
--- NOTE | 2021-02-22 23:39 | NUR ---
PATIENT NOT ALERT AWAKE LETHARGIC DOESNT OPEN EYES HAS NGT TO HIGH SUCTION NO DRAINAGE JUST SCANT DRAINAGE BILE COLOR. ON MONITOR SINUS TACH HEART RATE 104. PATIENT ABDOMEN OBESE SOFT TO TOUCH WITH HYPO ACTIVE BOWEL SOUND. NO BOWEL MOVEMENT. AT THIS TIME. PATIENT NPO NO SIGNS OF DISTRESS.
[2021-02-22] MEDS ORDERED: PIPERACILLIN/TAZOBACTAM 3.375 GM VIAL IV ONE (23:46)
[2021-02-23] VITALS (17 sets, daily range): BP systolic 134–167; BP diastolic 62–89
[2021-02-23 00:22] LABS: BASOPHILS % (AUTO) 0.3 % (0.0-2.0); EOSINOPHILS % (AUTO) 0.2 % (0.0-4.0); HEMATOCRIT 30.2 % (36-48); HEMOGLOBIN 10.4 g/dL (12.0-16.0); LYMPHOCYTES # (AUTO) 1.3 K/uL (2.5-16.5); MEAN CORPUSCULAR HEMOGLOBIN 34 pg (27-31); MEAN CORPUSCULAR HGB CONC 35 g/dL (33-37); MEAN CORPUSCULAR VOLUME 97.4 fL (80-94); MONOCYTES % (AUTO) 14.1 % (1.7-9.3); NEUTROPHILS # (AUTO) 4.8 K/uL (1.8-7.7); NEUTROPHILS % (AUTO) 67.4 % (42.2-75.2); PLATELET COUNT (AUTO) 48 K/uL (140-450); RED CELL DISTRIBUTION WIDTH 15.1 % (11.6-13.7); WHITE BLOOD COUNT (AUTO) 7.1 K/uL (4.8-10.8)
--- NOTE | 2021-02-23 02:27 | NUR ---
PATIENT HAS,NT VOID JUST X1 BOWEL MOVEMENT DID BLADDER SCAN AT 0215 HAD 700 CC RESIDUAL INSERTED F/C #[id number] CC RETURNED RIGHT AWAY IN F/C DRAINAGE BAG.
[2021-02-23] MEDS ORDERED: PIPERACILLIN/TAZOBACTAM 3.375 GM VIAL IV ONE (04:22)
[2021-02-23] MEDS: PIPERACILLIN/TAZOBACTAM 3.375 GM in DEXTROSE 5% 50 ML IV SCH ×6 (06:00→23:33)
[2021-02-23] MEDS: hydrALAZINE 20 MG/ML VIAL IVP PRN (06:20)
[2021-02-23 06:24] LABS: ALBUMIN 3.7 g/dL (3.4-5.0); ANION GAP 14.5 (8-16); BASOPHILS % (AUTO) 0.1 % (0.0-2.0); CARBON DIOXIDE 24.2 mmol/L (21-32); EOSINOPHILS % (AUTO) 0.6 % (0.0-4.0); HEMATOCRIT 29.9 % (36-48); HEMOGLOBIN 10.4 g/dL (12.0-16.0); LYMPHOCYTES # (AUTO) 1.3 K/uL (2.5-16.5); LYMPHOCYTES % (AUTO) 17.9 % (20.5-51.1); MAGNESIUM 2.7 mg/dL (1.8-2.4); MEAN CORPUSCULAR HEMOGLOBIN 34 pg (27-31); MEAN CORPUSCULAR HGB CONC 35 g/dL (33-37); MEAN CORPUSCULAR VOLUME 97.5 fL (80-94); MONOCYTES % (AUTO) 13.8 % (1.7-9.3); NEUTROPHILS # (AUTO) 4.9 K/uL (1.8-7.7); NEUTROPHILS % (AUTO) 67.6 % (42.2-75.2); PLATELET COUNT (AUTO) 49 K/uL (140-450); RED BLOOD CELL COUNT(AUTO) 3.07 MIL/uL (4.20-5.40); RED CELL DISTRIBUTION WIDTH 14.8 % (11.6-13.7); TOTAL BILIRUBIN 3.9 mg/dL (0.0-1.0); WHITE BLOOD COUNT (AUTO) 7.3 K/uL (4.8-10.8)
[2021-02-23 06:46] LABS: POTASSIUM 2.7 mmol/L (3.5-5.1)
[2021-02-23] MEDS: KCL 20 MEQ/WATER INJ PREMIX 200 ML IV PRN (07:06)
--- NOTE | 2021-02-23 08:10 | NUR ---
SEEN AND EXAMINED BY DR RODRIGUEZ
[2021-02-23] MEDS: LACTULOSE 20 GM/30 ML UDC PO SCH ×2 (08:39→21:41)
[2021-02-23] MEDS: RIFAXIMIN 550 MG TAB PO SCH ×2 (08:40→21:41)
[2021-02-23] MEDS: PANTOPRAZOLE 40 MG INJ VIAL IVP SCH ×2 (08:41→21:41)
[2021-02-23] MEDS: DEXT 5% / NACL 0.45% 1,000 ML IV SCH ×2 (08:46→18:34)
[2021-02-23] MEDS ORDERED: PANTOPRAZOLE 40 MG INJ VIAL IVP SCH (09:00)
[2021-02-23 12:34] LABS: BASOPHILS % (AUTO) 0.1 % (0.0-2.0); EOSINOPHILS % (AUTO) 0.6 % (0.0-4.0); HEMOGLOBIN 10.4 g/dL (12.0-16.0); LYMPHOCYTES # (AUTO) 1.3 K/uL (2.5-16.5); LYMPHOCYTES % (AUTO) 16.8 % (20.5-51.1); MEAN CORPUSCULAR HEMOGLOBIN 34 pg (27-31); MEAN CORPUSCULAR HGB CONC 35 g/dL (33-37); MONOCYTES % (AUTO) 13.5 % (1.7-9.3); NEUTROPHILS # (AUTO) 5.2 K/uL (1.8-7.7); PLATELET COUNT (AUTO) 44 K/uL (140-450); RED BLOOD CELL COUNT(AUTO) 3.09 MIL/uL (4.20-5.40); RED CELL DISTRIBUTION WIDTH 15.2 % (11.6-13.7); WHITE BLOOD COUNT (AUTO) 7.5 K/uL (4.8-10.8)
--- NOTE | 2021-02-23 13:00 | NUR ---
PT'S DAUGHTER REQUESTING TO TALK TO MD AND IS REQUESTING PAIN MEDICINE FOR PT. NOTIFIED DR TAMAYO AND HE WILL TALK TO PT'S FAMILY
[2021-02-23 18:02] LABS: BASOPHILS % (AUTO) 0.1 % (0.0-2.0); EOSINOPHILS # (AUTO) 0.1 K/uL (0-0.4); EOSINOPHILS % (AUTO) 0.9 % (0.0-4.0); HEMATOCRIT 29.4 % (36-48); HEMOGLOBIN 10.1 g/dL (12.0-16.0); LYMPHOCYTES # (AUTO) 1.2 K/uL (2.5-16.5); LYMPHOCYTES % (AUTO) 17.8 % (20.5-51.1); MEAN CORPUSCULAR HEMOGLOBIN 34 pg (27-31); MEAN CORPUSCULAR HGB CONC 35 g/dL (33-37); MEAN CORPUSCULAR VOLUME 97.5 fL (80-94); MONOCYTES # (AUTO) 0.9 K/uL (0.8-1.0); MONOCYTES % (AUTO) 13.6 % (1.7-9.3); NEUTROPHILS # (AUTO) 4.7 K/uL (1.8-7.7); NEUTROPHILS % (AUTO) 67.6 % (42.2-75.2); PLATELET COUNT (AUTO) 39 K/uL (140-450); RED BLOOD CELL COUNT(AUTO) 3.01 MIL/uL (4.20-5.40); RED CELL DISTRIBUTION WIDTH 15.3 % (11.6-13.7)
[2021-02-23] MEDS: ATORVASTATIN 20 MG TAB PO SCH (21:41)
[2021-02-24] VITALS (13 sets, daily range): BP systolic 117–159; BP diastolic 64–92
[2021-02-24 00:15] LABS: HEMATOCRIT 29.6 % (36-48); HEMOGLOBIN 10.2 g/dL (12.0-16.0); MEAN CORPUSCULAR HEMOGLOBIN 34 pg (27-31); MEAN CORPUSCULAR HGB CONC 35 g/dL (33-37); MEAN CORPUSCULAR VOLUME 97.4 fL (80-94); PLATELET COUNT (AUTO) 39 K/uL (140-450); RED BLOOD CELL COUNT(AUTO) 3.04 MIL/uL (4.20-5.40); WHITE BLOOD COUNT (AUTO) 7.8 K/uL (4.8-10.8)
[2021-02-24] MEDS: hydrALAZINE 20 MG/ML VIAL IVP PRN ×4 (00:23→08:53)
[2021-02-24 00:43] LABS: LYMPHOCYTES % (MANUAL) 19 % (20-46); MONOCYTES % (MANUAL) 9 % (5-12)
[2021-02-24] MEDS: PIPERACILLIN/TAZOBACTAM 3.375 GM in DEXTROSE 5% 50 ML IV SCH ×3 (05:27→18:24)
[2021-02-24 06:12] LABS: BASOPHILS % (AUTO) 0.1 % (0.0-2.0); EOSINOPHILS # (AUTO) 0.2 K/uL (0-0.4); EOSINOPHILS % (AUTO) 1.7 % (0.0-4.0); HEMATOCRIT 32.8 % (36-48); HEMOGLOBIN 11.2 g/dL (12.0-16.0); LYMPHOCYTES # (AUTO) 1.5 K/uL (2.5-16.5); LYMPHOCYTES % (AUTO) 13.3 % (20.5-51.1); MEAN CORPUSCULAR HEMOGLOBIN 33 pg (27-31); MEAN CORPUSCULAR HGB CONC 34 g/dL (33-37); MEAN CORPUSCULAR VOLUME 97.4 fL (80-94); MONOCYTES # (AUTO) 1.7 K/uL (0.8-1.0); MONOCYTES % (AUTO) 15.1 % (1.7-9.3); NEUTROPHILS # (AUTO) 7.9 K/uL (1.8-7.7); NEUTROPHILS % (AUTO) 69.8 % (42.2-75.2); PLATELET COUNT (AUTO) 60 K/uL (140-450); RED BLOOD CELL COUNT(AUTO) 3.36 MIL/uL (4.20-5.40); RED CELL DISTRIBUTION WIDTH 14.8 % (11.6-13.7); WHITE BLOOD COUNT (AUTO) 11.3 K/uL (4.8-10.8)
[2021-02-24 06:36] LABS: ALBUMIN 3.1 g/dL (3.4-5.0); ANION GAP 15.3 (8-16); CARBON DIOXIDE 23.7 mmol/L (21-32); CREATININE 1.6 mg/dL (0.6-1.3); MAGNESIUM 2.5 mg/dL (1.8-2.4)
[2021-02-24] MEDS: KCL 20 MEQ/WATER INJ PREMIX 200 ML IV PRN (07:39)
[2021-02-24] MEDS: DEXTROSE 5% 1,000 ML IV SCH ×3 (08:00→22:39)
[2021-02-24] MEDS: PANTOPRAZOLE 40 MG INJ VIAL IVP SCH ×2 (08:51→21:18)
[2021-02-24] MEDS: LACTULOSE 20 GM/30 ML UDC PO SCH ×2 (08:51→21:18)
[2021-02-24] MEDS: RIFAXIMIN 550 MG TAB PO SCH ×2 (08:52→21:18)
--- NOTE | 2021-02-24 10:24 | NUR ---
(02/24/21) RD FOLLOW UP COMPLETED PLEASE REFER TO NUTRITION PROGRESS NOTE UNDER CARE ACTIVITY FOR ESTIMATED NUTRITION NEEDS. RD RECOMMENDATIONS: 1. CONTINUE NPO MEDICALLY APPROPRIATE/PER MD. 2. IF PT IS UNABLE TO RECEIVE ORAL NUTRITION OR TF, CONSIDER PPN OR TPN. IF PPN, CONSIDER D12.5%, AA3.25% AT 80 ML/HR TO PROVIDE 1066 KCAL AND 62 GM PROTEIN (55% KCAL AND 96% PROTEIN NEEDS MET). GIR: 2.03 IF TPN, CONSIDER D25%, AA5% AT 55 ML/HR TO PROVIDE 1386 KCAL AND 66 GM PROTEIN (72% KCAL NEEDS AND 86% UPPE-END PROTEIN NEEDS MET). GIR: 3.74 3. IF PT WILL NEED TUBE FEEDING CONSIDER, CONSIDER JEVITY 1.2 AT GOAL RATE OF 65 ML/HR, START AT 25 ML/HR AND ADVANCE TOLERATED TO GOAL RATE. -AT GOAL RATE TUBE FEEDING WILL PROVIDE 1872 KCAL AND 87 GM OF PROTEIN, WHICH IS ADEQUATE TO MEET NUTRITIONAL NEEDS. 4. IF PT IS MEDICALLY STABLE FOR ORAL INTAKE, CONSIDER CARDIAC DIET WITH TEXTURE MODIFICATIONS PER MD/BETTING AGENCY MANAGER. 5. RD WILL F/U 2-3 DAYS; HIGH RISK DORIS SOUZA, MS, RDN
[2021-02-24] MEDS ORDERED: METOPROLOL 5 MG/5 ML VIAL IVP SCH (18:20)
--- NOTE | 2021-02-24 18:24 | NUR ---
SPOKE TO DR RODGERS REGARDING PT INCREASE HEART RATE TO 140S, PER TO ORDER LORPESSOR 5MG IVP ONE TIME. WILL PUT IN ORDER AND CONTINUE WITH ORDERS.
[2021-02-24] MEDS: ATORVASTATIN 20 MG TAB PO SCH (21:18)
[2021-02-25] VITALS (13 sets, daily range): BP systolic 118–180; BP diastolic 72–90
[2021-02-25] MEDS: PIPERACILLIN/TAZOBACTAM 3.375 GM in DEXTROSE 5% 50 ML IV SCH ×4 (00:15→18:17)
[2021-02-25] MEDS: DEXTROSE 5% 1,000 ML IV SCH (05:19)
[2021-02-25] MEDS: hydrALAZINE 20 MG/ML VIAL IVP PRN ×2 (05:34→09:25)
[2021-02-25 06:43] LABS: BASOPHILS % (AUTO) 0.1 % (0.0-2.0); EOSINOPHILS # (AUTO) 0.2 K/uL (0-0.4); EOSINOPHILS % (AUTO) 2.1 % (0.0-4.0); HEMATOCRIT 28.3 % (36-48); HEMOGLOBIN 9.5 g/dL (12.0-16.0); LYMPHOCYTES # (AUTO) 1.5 K/uL (2.5-16.5); LYMPHOCYTES % (AUTO) 15.1 % (20.5-51.1); MEAN CORPUSCULAR HEMOGLOBIN 34 pg (27-31); MEAN CORPUSCULAR HGB CONC 34 g/dL (33-37); MEAN CORPUSCULAR VOLUME 100.3 fL (80-94); MONOCYTES # (AUTO) 1.6 K/uL (0.8-1.0); MONOCYTES % (AUTO) 15.7 % (1.7-9.3); NEUTROPHILS # (AUTO) 6.8 K/uL (1.8-7.7); PLATELET COUNT (AUTO) 40 K/uL (140-450); RED BLOOD CELL COUNT(AUTO) 2.82 MIL/uL (4.20-5.40); RED CELL DISTRIBUTION WIDTH 15.5 % (11.6-13.7); WHITE BLOOD COUNT (AUTO) 10.2 K/uL (4.8-10.8)
--- NOTE | 2021-02-25 07:20 | NUR ---
RECEIVED BEDSIDE REPORT FROM AKIKO BANSAL FOR CONTINUITY OF CARE. PT IS AWAKE IN THE BED. EYES OPEN, PERRL, 3MM. PT IS ALERT AND ORIENTED TO SELF AND PLACE. NGT TO R NARE. O2 DELIVERY ROOM AIR. MY PICC LINE IN PLACE, PATENT, NO SYMPTOMS OF WARMTH, REDNESS, OR SWELLING. D5% RUNNING AT 150 CC/HR. R HAND 22G IV, NO SYMPTOMS OF WARMTH, REDNESS, OR SWELLING. GENERALIZED WEAKNESS TO BUE AND BLE. LUNG SOUNDS CLEAR THROUGHOUT. S1 & S2 PRESENT. BOWEL SOUNDS HYPOACTIVE. F/C IN PLACE, DRAINING TO GRAVITY. SCD ON BOTH CALVES. STANDARD PRECAUTIONS IN PLACE. BED IS IN LOWEST POSITION, SIDE RAILS UP, SEMI FOWLERS. SAFETY PRECAUTIONS IN PLACE. CALL LIGHT WITHIN REACH.
[2021-02-25 08:09] LABS: ANION GAP 13.2 (8-16); CARBON DIOXIDE 23.2 mmol/L (21-32); CREATININE 1.7 mg/dL (0.6-1.3); POTASSIUM 3.4 mmol/L (3.5-5.1)
[2021-02-25] MEDS: RIFAXIMIN 550 MG TAB PO SCH ×2 (08:16→21:23)
[2021-02-25] MEDS: LACTULOSE 20 GM/30 ML UDC PO SCH ×2 (08:17→21:22)
[2021-02-25] MEDS: PANTOPRAZOLE 40 MG INJ VIAL IVP SCH ×2 (08:17→21:22)
--- NOTE | 2021-02-25 08:25 | NUR ---
NGT REMOVED PER DR ORDER. PT TOLERATED WELL.
[2021-02-25] MEDS ORDERED: DEXTROSE 50% 50 ML SYR IVP PRN (08:30)
[2021-02-25] MEDS ORDERED: INSULIN LISPRO SLIDING SCALE 100 UNITS/ML VIAL SUBQ PRN (08:30)
--- NOTE | 2021-02-25 08:40 | NUR ---
DR TAMAOY AT BEDSIDE, EXAMINING PT.
--- NOTE | 2021-02-25 08:50 | NUR ---
DR. TANG AT BEDSIDE, EXAMINING PT.
[2021-02-25] MEDS: PROPRANOLOL 20 MG TAB PO SCH (09:04)
--- NOTE | 2021-02-25 09:30 | NUR ---
FAMILY AT BEDSIDE.
[2021-02-25] MEDS ORDERED: BLOOD GLUCOSE MONITORING 1 DEV DEV FS SCH (11:30)
--- NOTE | 2021-02-25 11:30 | NUR ---
DR RODGERS AT BEDSIDE, EVALUATING PT.
[2021-02-25] MEDS ORDERED: POTASSIUM CHLORIDE 20% 40 MEQ/15 ML UDC PO SCH (12:00)
--- NOTE | 2021-02-25 12:30 | NUR ---
PT ATE 20% LUNCH TRAY, TOLERATED WELL, NO NAUSEA OR VOMITING. WILL CONTINUE TO MONITOR.
--- NOTE | 2021-02-25 14:00 | NUR ---
PT ASLEEP, EYES CLOSED. NO SIGNS OF DISTRESS OR DISCOMFORT. FAMILY AT BEDSIDE. BED IN LOWEST POSITION, CALL LIGHT WITHIN REACH. WILL CONTINUE TO MONITOR.
--- NOTE | 2021-02-25 16:30 | NUR ---
GAVE REPORT VIA PHONE TO TELE NURSE HANNAH BANSAL FOR CONTINUITY OF CARE.
--- NOTE | 2021-02-25 17:00 | NUR ---
TRANSFERRED PT TO [facility] ROOM 120B. CLEANED AND REPOSITIONED PT. PT TOLERATED WELL. HANNAH BANSAL AT BEDSIDE. BED IN LOWEST POSITION, CALL LIGHT WITHIN REACH.
--- NOTE | 2021-02-25 17:05 | NUR ---
[place] [facility] [place] AWAKE AND ALERT. PATIENT HAS EPISODES OF FORGETFULNESS. NO ACUTE DISTRESS NOTED. NO ABNORMAL HEART SOUNDS HEARD. LUNG SOUNDS HEARD. BOWEL SOUND HEARD IN ALL FOUR QUADRANTS. PATIENT NOTED TO HAVE GENERALIZED WEAKNESS. PATIENT SKIN IS DRY, CLEAN AND INTACT. PATIENT VS STABLE. PATIENT HAS PICC LINE TO RIGHT UPPER ARM. EDUCATED PATIENT TO ROOM ENVIRONMENT. CALL LIGHT WITHIN REACH. ALL SAFETY MEASURES IN PLACE. DAUGHTERS AT BEDSIDE.
--- NOTE | 2021-02-25 17:48 | NUR ---
PATIENT HAD 2 BM. DAUGHTERS AT BEDSIDE.
--- NOTE | 2021-02-25 18:05 | NUR ---
PATIENT AWAKE SITTING UP IN BED. PATIENT EATING TOLERATING WELL. NO ACUTE DISTRESS NOTED. CALL LIGHT WITHIN REACH. ALL SAFETY MEASURES IN PLACE. WILL CONTINUE TO MONITOR.
--- NOTE | 2021-02-25 19:08 | NUR ---
ENDORSED TO DOCUMENT CONTROL COORDINATOR NURSE FOR CONTINUITY OF PATIENT CARE. PATIENT STABLE. DAUGHTER AT BEDSIDE.
--- NOTE | 2021-02-25 19:10 | NUR ---
RECEIVED PT FROM DAY SHIFT NURSE FOR CONTINUITY OF CARE. PATIENT AWAKE, ALERT AND ORIENTED.PT ON ROOM AIR. FAMILY AT BEDSIDE.PT HAS ROWELL DRAINING CLEAR YELLOW URINE. NO ACUTE DISTRESS NOTED.PT NOTED TO HAVE GENERALIZED WEAKNESS. PATIENT SKIN IS DRY, CLEAN AND INTACT. PATIENT VS STABLE. PATIENT HAS PICC LINE ON RIGHT UPPER ARM.ALL PRECAUTIONS IN PLACE. CALL LIGHT WITHIN REACH. WILL CONTINUE TO MONITOR.
[2021-02-25] MEDS: ATORVASTATIN 20 MG TAB PO SCH (21:23)
--- NOTE | 2021-02-25 21:30 | NUR ---
DUE MEDICATIONS GIVEN.PT TOLERATED WELL. DENIES PAIN. PT NOT IN ANY DISTRESS.ALL PRECAUTIONS IN PLACE. CALL LIGHT WITHIN REACH. WILL CONTINUE TO MONITOR.
[2021-02-26] VITALS (7 sets, daily range): BP systolic 114–152; BP diastolic 53–76
[2021-02-26] MEDS: PIPERACILLIN/TAZOBACTAM 3.375 GM in DEXTROSE 5% 50 ML IV SCH ×2 (00:27→05:55)
--- NOTE | 2021-02-26 00:30 | NUR ---
SCHEDULED ANTIBIOTICS GIVEN. PT TOLERATED WELL.PT NOT IN ANY DISTRESS. NO COMPLAINS AT THIS TIME. WILL CONTINUE TO MONITOR.
--- NOTE | 2021-02-26 02:30 | NUR ---
PT ASLEEP. BREATHING UNLABORED AND EQUAL. PT NOT IN ANY DISTRESS.ALL PRECAUTIONS IN PLACE. WILL CONTINUE TO MONITOR.
--- NOTE | 2021-02-26 06:02 | NUR ---
SCHEDULED ANTIBIOTICS GIVEN. PT TOLERATED WELL. NO ACUTE DRUG REACTION NOTED. ALL PRECAUTIONS IN PLACE. CALL LIGHT WITHIN REACH. WILL CONTINUE TO MONITOR.
--- NOTE | 2021-02-26 06:30 | NUR ---
PT IS STABLE. NO ACUTE EVENTS THROUGHOUT THE NIGHT. ALL NEEDS ATTENDED. NO COMPLAINS AT THIS TIME. CALL LIGHT WITHIN REACH. WILL ENDORSE TO AM SHIFT NURSE.
--- NOTE | 2021-02-26 07:45 | NUR ---
ENDORSED TO AM SHIFT NURSE FOR CONTINUITY OF CARE. PT IS STABLE.
--- NOTE | 2021-02-26 08:13 | NUR ---
RECEIVED BEDSIDE REPORT FROM PACKAGE REINSPECTOR RN FOR CONTINUITY OF CARE. PT IS AWAKE IN THE BED. PT IS ALERT AND ORIENTEDX4. IN ROOM AIR.BREATHING EVEN UNLABORED, NO SOD NOTED . MY PICC LINE IN PLACE, PATENT, NO SYMPTOMS OF WARMTH, REDNESS, OR SWELLING. SALINE LOCK. LUNG SOUNDS CLEAR THROUGHOUT. SCD ON BOTH CALVES. STANDARD PRECAUTIONS IN PLACE. BED IS IN LOWEST POSITION, SIDE RAILS UP, SEMI FOWLERS. SAFETY PRECAUTIONS IN PLACE. CALL LIGHT WITHIN REACH.
[2021-02-26] MEDS: PANTOPRAZOLE 40 MG INJ VIAL IVP SCH ×2 (09:38→21:40)
[2021-02-26] MEDS: LACTULOSE 20 GM/30 ML UDC PO SCH ×2 (09:39→21:40)
[2021-02-26] MEDS: PROPRANOLOL 20 MG TAB PO SCH (09:39)
[2021-02-26] MEDS: RIFAXIMIN 550 MG TAB PO SCH ×2 (09:39→21:40)
--- NOTE | 2021-02-26 10:11 | NUR ---
PATIENT IN BED NO COMPLAINS NO SOD NOTED, GOT MORNING MEDICATION TOLERATED WELL, ALL SAFETY MEASURES ON PLACE, CALLS LIGHT WITHIN REACH
--- NOTE | 2021-02-26 12:25 | NUR ---
PATIENT IN BED NO COMPLAINS NO SOD NOTED, ALL SAFETY MEASURES ON PLACE, CALLS LIGHT WITHIN REACH
--- NOTE | 2021-02-26 13:57 | NUR ---
PATIENT IN BED NO COMPLAINS NO SOD NOTED, FAMILY NEXT TO BED SIDE ALL SAFETY MEASURES ON PLACE, CALLS LIGHT WITHIN REACH
[2021-02-26 15:26] LABS: BASOPHILS % (AUTO) 0.2 % (0.0-2.0); EOSINOPHILS # (AUTO) 0.7 K/uL (0-0.4); EOSINOPHILS % (AUTO) 4.8 % (0.0-4.0); HEMATOCRIT 29.6 % (36-48); HEMOGLOBIN 10.1 g/dL (12.0-16.0); MEAN CORPUSCULAR HEMOGLOBIN 34 pg (27-31); MEAN CORPUSCULAR HGB CONC 34 g/dL (33-37); MEAN CORPUSCULAR VOLUME 97.9 fL (80-94); MONOCYTES # (AUTO) 1.8 K/uL (0.8-1.0); MONOCYTES % (AUTO) 12.5 % (1.7-9.3); NEUTROPHILS % (AUTO) 68.5 % (42.2-75.2); PLATELET COUNT (AUTO) 41 K/uL (140-450); RED BLOOD CELL COUNT(AUTO) 3.02 MIL/uL (4.20-5.40); RED CELL DISTRIBUTION WIDTH 14.9 % (11.6-13.7); WHITE BLOOD COUNT (AUTO) 14.6 K/uL (4.8-10.8)
[2021-02-26 15:53] LABS: ALBUMIN 2.4 g/dL (3.4-5.0); ANION GAP 12.6 (8-16); CARBON DIOXIDE 24.5 mmol/L (21-32); CREATININE 1.8 mg/dL (0.6-1.3); POTASSIUM 4.1 mmol/L (3.5-5.1)
--- NOTE | 2021-02-26 16:21 | NUR ---
PATIENT IN BED NO COMPLAINS NO SOD NOTED, ALL SAFETY MEASURES ON PLACE, CALLS LIGHT WITHIN REACH
--- NOTE | 2021-02-26 17:46 | NUR ---
PATIENT IN BED COMPLAINS THAT SHE STILL HAVE SOME ABDOMEN PAIN AFTER EATING, PATIENT REFUSE TO TAKE ANY MEDICATION CLAIMING PAIN IS TOLERABLE. NO SOD NOTED, GOT CLEANED AND CHANGED . FAMILY NEXT TO BED SIDE, VERY UPSET CLAIMING THAT THE DOCTOR TOLD THEM TO LOOK FOR REHABILITATION, THEY SAY THAT THEY NEVER GOT THEIR QUESTIONS ANSWERED, FROM THE DOCTOR. ALL THEIR QUESTION FOR THE NURSE WAS ANSWERED THEY STILL WANNA TALK TO THE DOCTOR THEY SAID THEY WILL COME TOMORROW TO TAKE TO THE SATELLITE TECHNICIAN AND THE DOCTOR, ALL SAFETY MEASURES ON PLACE, CALLS LIGHT WITHIN REACH
--- NOTE | 2021-02-26 19:50 | NUR ---
FULL BEDSIDE REPORT GIVEN TO TELEPHONE SALES REPRESENTATIVE NURSE
[2021-02-26] MEDS: ATORVASTATIN 20 MG TAB PO SCH (21:40)
[2021-02-27 04:00] VITALS: BP 132/70
--- NOTE | 2021-02-27 04:36 | NUR ---
the pateint vitals are stable. no abdominal pain . breathing is even and unlabored/ comfort and safety measures are provided. education was provided to the pateint and family members
[2021-02-27 07:00] LABS: ANION GAP 10.6 (8-16); CARBON DIOXIDE 25.4 mmol/L (21-32); CREATININE 1.7 mg/dL (0.6-1.3)
--- NOTE | 2021-02-27 07:30 | NUR ---
RECEIVED REPORT FROM LAND SURVEYING SURVEY WORKER NURSE FOR CONTINUITY OF CARE, POC DISCUSSED. PT IS ASLEEP IN BED WITH CHEST VISIBLY RISING AND FALLING EVEN AND UNLABORED. PT ON ROOM AIR WITH NO ACUTE S/S OF DISTRESS. PT HAS A RIGHT UPPER ARM WITH A PICC LINE SALINE LOCK. PT HAS A ROWELL DRAINING YELLOW URINE. ALL SAFETY MEASURES IN PLACE, CALL LIGHT WITHIN REACH. WILL CONTINUE TO MONITOR.
[2021-02-27 08:00] VITALS: BP 163/69
--- NOTE | 2021-02-27 08:59 | NUR ---
[facility] MEDICATION ADMINISTERED PER MD ORDER. PT TOLERATED ADMINISTRATION. PT HAS BEEN REPOSITIONED IN BED AND REPORTS FEELING COMFORTABLE. PT DENIES PAIN AT THIS TIME. PT SITTING UP WITH BREAKFAST IN FRONT OF HER. PT HAS ROWELL IN PLACE DRAINING [place] COLOR URINE. ALL SAFETY MEASURES IN PLACE, CALL LIGHT WITHIN REACH. WILL CONTINUE TO MONITOR.
[2021-02-27] MEDS: RIFAXIMIN 550 MG TAB PO SCH ×2 (09:08→21:31)
[2021-02-27] MEDS: LACTULOSE 20 GM/30 ML UDC PO SCH ×2 (09:08→21:31)
[2021-02-27] MEDS: PANTOPRAZOLE 40 MG INJ VIAL IVP SCH ×2 (09:08→21:31)
[2021-02-27] MEDS: PROPRANOLOL 20 MG TAB PO SCH (09:08)
--- NOTE | 2021-02-27 10:08 | NUR ---
FAMILY AT BEDSIDE
--- NOTE | 2021-02-27 11:09 | NUR ---
PT HAS A LARGE BM, PT HAS BEEN CLEANED AND REPOSITIONED. PT REPORTS ALL NEEDS ARE MET AT THIS TIME. ALL SAFETY MEASURES IN PLACE, CALL LIGHT WITHIN REACH. WILL CONTINUE TO MONITOR.
--- NOTE | 2021-02-27 13:15 | NUR ---
02/27/21 RD FOLLOW UP COMPLETED PLEASE REFER TO NUTRITION ASSESSMENT UNDER CARE ACTIVITY FOR ESTIMATED NUTRITIONAL NEEDS. 1. RECOMMEND SWALLOW EVALUATION -IF PT PASSES, CONTINUE RENAL AND CARDIAC SOFT DIET AND ADD ORAL NUTRITION SUPPLEMENTS 2. RD TO FOLLOW-UP 2-3 DAYS, HIGH RISK AMADOR NORRIS, RD
--- NOTE | 2021-02-27 13:32 | NUR ---
PT IS RESTING IN BED COMFORTABLY WITH NO ACUTE S/S OF DISTRESS. ALL SAFETY MEASURES IN PLACE. CALL LIGHT WITHIN REACH. WILL CONTINUE TO MONITOR.
[2021-02-27] MEDS ORDERED: PROP20TA29 PO (14:37)
[2021-02-27] MEDS ORDERED: RIFA550T PO (14:37)
--- NOTE | 2021-02-27 14:54 | NUR ---
PT HAS BEEN CLEANED UP FROM A MODERATE SIZE BM, LOOSE BLACK STOOL. PT TOLERATED CLEANING. ALL SAFETY MEASURES IN PLACE, CALL LIGHT WITHIN REACH. WILL CONTINUE TO MONITOR.
--- NOTE | 2021-02-27 15:50 | NUR ---
PT RESTING IN BED WITH NO ACUTE S/S OF DISTRESS. ALL SAFETY MEASURES IN PLACE. CALL LIGHT WITHIN REACH. WILL CONTINUE TO MONITOR.
--- NOTE | 2021-02-27 16:01 | NUR ---
PT WAS SEEN FOR DYSPHAGIA. PT WAS ABLE TO SAFELY SWALLOW MS DIET WITH THIN LIQUID. RECOMMENDATION MS DIET WITH THIN LIQUID
--- NOTE | 2021-02-27 16:58 | NUR ---
PER PT DAUGHTER; PT RECEIVED PFIZER ON 05-08-20, SECOND DOSE ON 05-29-20, AND BOOSTER ON 02-13-21.
--- NOTE | 2021-02-27 17:03 | NUR ---
DAUGHTER AT BEDSIDE, PT STABLE AND REPORTS ALL NEEDS ARE MET.
--- NOTE | 2021-02-27 17:08 | NUR ---
DC PLANNING PATIENT IS A 65-YEAR-OLD FEMALE ADMITTED IN THE [facility]/ED ON 02/19/2021 DUE TO SMALL BOWEL OBSTRUCTION(PATIENT IS DIVEHI SPEAKING ONLY). CM AND NANCY MET WITH PATIENT AT BEDSIDE TO DISCUSS AND GATHER HER COLLATERAL INFORMATION. PATIENT REPORTED LIVING AT HOME WITH HER SON AND HIS IN [facility]. PATIENT REPORTED THAT HER DAUGHTER ZURI SIGALA IS HER EMERGENCY CONTACT AND HER DESICION MAKER. PATIENT REPORTED THAT SHE DOESN'T HAVE ADVANCE DIRECTIVES AT THIS TIME,AND DECLINED A.D. INF. PACKET PROVIDED BY NANCY. PATIENT REPORTED NOT HAVING ANY ISSUES GETTING OR TAKING HER MEDICATIONS FROM THE PHARMACY NEAR HER HOME. PATIENT STATED NOT HAVING OR NEEDING DME AT HOME AND REPORTED BEEN ACTIVE AND INDEPENDENT TO AMBULATE AT HOME. PATIENT REPORTED GOING TO HER PCP MICHA SERRATO'S OFFICE IN [facility] IN A REGULAR BASIS. PER PATIENT LAST VISIT WITH MD WAS ABOUT A MONTH AGO. PATIENT REPORTED TO NANCY THAT SHE DO NOT WISH TO GO TO SNF AND WILL LIKE TO GO BACK HOME WITH HOME HEALTH WITH THE ASSISTANCE OF HER DAUGHTER ZURI WITH TRANSPORTATION BACK HOME WHEN SHE IS READY TO DC FROM [facility]. NANCY THANK HER FOR HER INF. AND LEFT HER ROOM. SW WILL FOLLOW UP NEEDED.
--- NOTE | 2021-02-27 18:40 | NUR ---
PT IS STABLE IN BED WITH AT BEDSIDE. ALL SAFETY MEASURES IN PLACE, CALL LIGHT WITHIN REACH. WILL CONTINUE TO MONITOR
--- NOTE | 2021-02-27 18:49 | NUR ---
PT IS STABLE AND ALL NEEDS HAVE BEEN MET THROUGHOUT SHIFT. PT WILL BE ENDORSED TO MONEY MARKET DEALER NURSE.
[2021-02-27 20:00] VITALS: BP 152/79
[2021-02-27] MEDS: ATORVASTATIN 20 MG TAB PO SCH (21:31)
--- NOTE | 2021-02-28 02:02 | NUR ---
the pateint vitals are stable. resting her bed comfortable. no complain of pain .breathing is even and unlabored. tajik speaking. comfort and safety measures are provided
[2021-02-28 04:00] VITALS: BP 149/82
[2021-02-28 07:07] LABS: BASOPHILS # (AUTO) 0.1 K/uL (0.00-0.22); BASOPHILS % (AUTO) 0.4 % (0.0-2.0); EOSINOPHILS # (AUTO) 0.7 K/uL (0-0.4); EOSINOPHILS % (AUTO) 4.3 % (0.0-4.0); HEMATOCRIT 29.9 % (36-48); HEMOGLOBIN 10.2 g/dL (12.0-16.0); LYMPHOCYTES # (AUTO) 2.8 K/uL (2.5-16.5); MEAN CORPUSCULAR HEMOGLOBIN 34 pg (27-31); MEAN CORPUSCULAR HGB CONC 34 g/dL (33-37); MEAN CORPUSCULAR VOLUME 98.8 fL (80-94); MONOCYTES # (AUTO) 2.1 K/uL (0.8-1.0); MONOCYTES % (AUTO) 12.7 % (1.7-9.3); NEUTROPHILS # (AUTO) 10.6 K/uL (1.8-7.7); NEUTROPHILS % (AUTO) 65.6 % (42.2-75.2); PLATELET COUNT (AUTO) 58 K/uL (140-450); RED BLOOD CELL COUNT(AUTO) 3.03 MIL/uL (4.20-5.40); RED CELL DISTRIBUTION WIDTH 15.1 % (11.6-13.7); WHITE BLOOD COUNT (AUTO) 16.2 K/uL (4.8-10.8)
--- NOTE | 2021-02-28 07:27 | NUR ---
RECEIVED REPORT FROM STEAM AND POWER SUPERINTENDENT NURSE. PATIENT LYING DOWN IN BED SLEEPING, AROUSABLE BY VOICE. NO DISTRESS NOTED. ON ROOM AIR. AAOX3, CALM, COOPERATIVE, APPROPRIATE AFFECT. ROWELL CATHETER IN PLACE, HAD 1 BM LAST NIGHT PER RN. NO NAUSEA, VOMITING, FEVERS OVERNIGHT. MY PICC LINE IN PLACE, IVF INFUSING PER MD ORDERS. REVIEWED PLAN OF CARE WITH PATIENT. REINFORCEMENT NEEDED. SAFETY MEASURES IN PLACE, CALL LIGHT WITHIN REACH. WILL CONTINUE TO MONITOR.
[2021-02-28 08:00] VITALS: BP 147/75
[2021-02-28] MEDS: LACTULOSE 20 GM/30 ML UDC PO SCH ×2 (09:08→21:45)
[2021-02-28] MEDS: RIFAXIMIN 550 MG TAB PO SCH ×2 (09:09→21:45)
[2021-02-28] MEDS: PROPRANOLOL 20 MG TAB PO SCH (09:09)
[2021-02-28] MEDS: PANTOPRAZOLE 40 MG INJ VIAL IVP SCH ×2 (09:09→21:45)
--- NOTE | 2021-02-28 09:09 | NUR ---
PATIENT IN BED WITH BREAKFAST TRAY IN FRONT. SCHEDULED MEDICATIONS DUE GIVEN. WILL CONTINUE TO MONITOR.
[2021-02-28] MEDS: ACETAMINOPHEN 325 MG TAB PO PRN (11:48)
--- NOTE | 2021-02-28 11:49 | NUR ---
PATIENT COMPLAINS OF MILD ABDOMINAL PAIN, TYLENOL GIVEN AT THIS TIME. PT WORKED WITH PATIENT, ABLE TO STAND UP AND PERFORM SIDE STEPS PER PT.
[2021-02-28] MEDS: ONDANSETRON 4 MG/2 ML VIAL IVP PRN ×2 (14:01→18:42)
--- NOTE | 2021-02-28 14:15 | NUR ---
PATIENT HAS VOMITING EPISODE, YELLOWISH LIQUID IN COLOR. ZOFRAN GIVEN AT THIS TIME. WILL CONTINUE TO MONITOR.
[2021-02-28 16:00] VITALS: BP 131/81
--- NOTE | 2021-02-28 18:00 | NUR ---
CONTINUES TO VOMIT. DR. ELKINS NOTIFIED. ORDERED RECEIVED
--- NOTE | 2021-02-28 19:37 | NUR ---
GAVE REPORT TO ASSISTANT HAIRSTYLIST NURSE FOR CONTINUITY OF CARE. PATIENT IN STABLE CONDITION.
[2021-02-28] MEDS: ATORVASTATIN 20 MG TAB PO SCH (21:45)
[2021-03-01] VITALS: BP 139/75
[2021-03-01] MEDS: ONDANSETRON 4 MG/2 ML VIAL IVP PRN ×2 (04:06→09:15)
--- NOTE | 2021-03-01 06:42 | NUR ---
the patent vitals are stable. breathing is even and unlabored. she had nausea and vomiting but she does no throw up anything. zofran was given . she showed some improvements. she is npo, she had Ct abdomen. she is on IVF fluid for hydration. comfort and safety measures were provided
--- NOTE | 2021-03-01 07:10 | NUR ---
PT ON BED AWAKE RESPIRATION EVEN AND UNLABORED. RECEIVED REPORT FROM NIGHT NURSE FOR CONTINUITY OF CARE. ALL SAFETY MEASURE IN PLACE. CALL LIGHT WITH IN EASY REACH.
--- NOTE | 2021-03-01 07:11 | NUR ---
WHILE DOING ROUNDS, NURSE OVERHEARD PATIENT DRY HEAVING. PER MYSQL DATABASE ADMINISTRATOR NURSE, PATIENT HAS HISTORY OF DRY HEAVING FOR A FEW MINUTES THEN SHE GOES TO SLEEP. WHEN ASKED MYSQL DATABASE ADMINISTRATOR IF ANY EMESIS THROUGHOUT THE NIGHT, MYSQL DATABASE ADMINISTRATOR NURSE STATES NO EMESIS THROUGHOUT THE NIGHT. STATES THAT PATIENT SLEPT THROUGHOUT THE NIGHT. NO REPORTS OF PAIN OR DISCOMFORT THROUGHOUT NIGHT ACCORDING TO MYSQL DATABASE ADMINISTRATOR NURSE.
--- NOTE | 2021-03-01 07:55 | NUR ---
PATIENT'S DAUGHTER WALKED INTO PATIENTS ROOM THEN QUICKLY WALKED TO NURSES STATION TO ASK WHO WAS PATIENT'S NURSE. WHEN THIS STAFF MEMBER WENT OVER TO PATIENTS ROOM, PATIENT HAS TOWELS ON HER CHEST THAT HAD SOME DARK GREEN FLUID ON IT AND SOME ON THE FLOOR. JORGE ALBERTO'S DAUGHTER STARTED TO YELL AT NURSE STATING "MY MOM SAYS SHES BEEN THROWING UP ALL NIGHT AND NO ONE COMES. SHE SAID SHES BEEN CALLING FOR A NURSE THROUGHOUT THE NIGHT AND SHE HAS BEEN IGNORED ALL NIGHT. AND NOW LOOK AT HER. SHES COVERED IN VOMIT. SHE IS VOMITING SHIT. I TRIED TO GIVE THIS HOSPITAL ANOTHER CHANCE BUT IM DONE WITH THIS PLACE. I WANT TO SEE A NON FERROUS MATERIAL HANDLER RIGHT NOW AND GET HER TRANSFERRED OUT OF HERE. ALSO, CAN YOU TELL ME WHY I HAVE NOT EVEN SEEN HER DR, DR VELÁSQUEZ. SHE HAS BEEN HERE FOR ALMOST 2 WEEKS AND WE HAVENT SEEN OR SPOKEN TO DR VELÁSQUEZ. WE DONT EVEN KNOW WHO THAT IS. THIS IS RIDICULOUS. SO CALL NON FERROUS MATERIAL HANDLER RIGHT NOW, BECAUSE I AM GETTING HER OUT OF HERE. THE DR DOESN'T KNOW WHAT HE IS DOING AND HE IS IGNORING HER". STAFF INFORMED CHARGE NURSE OF SITUATION. CHARGE NURSE CALLED NON FERROUS MATERIAL HANDLER. WILL CONTINUE TO MONITOR.
[2021-03-01 08:00] VITALS: BP 144/66
--- NOTE | 2021-03-01 08:00 | NUR ---
Patient's Plan of Care was discussed and reviewed with GEODETIC TECHNICIAN: CHRISTIANO RITTER
--- NOTE | 2021-03-01 08:25 | NUR ---
PATIENTS OTHER DAUGHTER CALLED NURSE INTO ROOM. THIS DAUGHTER APOLOGIZED, STATED "I HEARD MY SISTER YELLED AT YOU, AND IM SORRY FOR THAT. WE ARE NOT UPSET AT THE NURSES AT ALL. JUST FRUSTRATED WITH THE DR'S." SHE THEN STATED "WE ARE PRETTY MUCH JUST WAITING TO SPEAK TO CASE MANAGEMENT TO HAVE MY MOM TRANSFERRED TO ANOTHER HOSPITAL. WE JUST WANT ANSWERS TO WHAT IS GOING ON WITH HER".
--- NOTE | 2021-03-01 09:15 | NUR ---
PATIENT COMPLAIN OF NAUSEA. RN ADMINISTERED ZOFRAN PER MD ORDER. WILL CONTINUE TO MONITOR. FAMILY AT BEDSIDE.
[2021-03-01] MEDS: PROPRANOLOL 20 MG TAB PO SCH (09:17)
[2021-03-01] MEDS: LACTULOSE 20 GM/30 ML UDC PO SCH (09:17)
[2021-03-01] MEDS: RIFAXIMIN 550 MG TAB PO SCH (09:17)
--- NOTE | 2021-03-01 09:17 | NUR ---
ADMINISTERED SCHEDULED MEDICATIONS. PATIENT ABLE TO TOLERATE WELL. WILL CONTINUE TO MONITOR. FAMILY AT BEDSIDE.
[2021-03-01] MEDS: PANTOPRAZOLE 40 MG INJ VIAL IVP SCH (09:18)
[2021-03-01] MEDS ORDERED: TPN PER PHARMACY MC PRN (10:30)
[2021-03-01] MEDS ORDERED: HYDROmorphone 1 MG/ML AMP IVP PRN (10:55)
[2021-03-01] MEDS ORDERED: DEXT 5% / NACL 0.45% 1,000 ML IV SCH (10:55)
--- NOTE | 2021-03-01 11:09 | NUR ---
PATIENT MOANING AND GROANING CONTINUOUSLY. NO ORDERS FOR PAIN MEDICATION. CALLED DR VELÁSQUEZ TO ORDER PAIN MEDICATION. NEW ORDERS RECEIVED AND CARRIED OUT. PATIENT RECEIVED DILAUDID. WILL CONTINUE TO MONITOR.
--- NOTE | 2021-03-01 11:13 | NUR ---
ATTEMPTED TO SEE PATIENT FOR PHYSICAL THERAPY TREATMENT HOWEVER DAUGHTER REPORTS SHE IS TOO UNWELL TO PARTICIPATE IN ANY ACTIVITY. PER DAUGHTER PATIENT HAS BEEN HAVING VOMITING EPISODES. NOTED PATIENT GROANING WITH EYE CLOSURE. WILL FOLLOW UP TOMORROW IF APPROPRIATE; RN AWARE.
[2021-03-01 12:07] LABS: BASOPHILS # (AUTO) 0.1 K/uL (0.00-0.22); BASOPHILS % (AUTO) 0.7 % (0.0-2.0); EOSINOPHILS # (AUTO) 0.1 K/uL (0-0.4); EOSINOPHILS % (AUTO) 1.4 % (0.0-4.0); HEMATOCRIT 29.6 % (36-48); HEMOGLOBIN 10.2 g/dL (12.0-16.0); LYMPHOCYTES # (AUTO) 1.1 K/uL (2.5-16.5); LYMPHOCYTES % (AUTO) 14.5 % (20.5-51.1); MEAN CORPUSCULAR HEMOGLOBIN 34 pg (27-31); MEAN CORPUSCULAR HGB CONC 35 g/dL (33-37); MEAN CORPUSCULAR VOLUME 99.5 fL (80-94); MONOCYTES # (AUTO) 0.7 K/uL (0.8-1.0); MONOCYTES % (AUTO) 9.8 % (1.7-9.3); NEUTROPHILS # (AUTO) 5.6 K/uL (1.8-7.7); NEUTROPHILS % (AUTO) 73.6 % (42.2-75.2); PLATELET COUNT (AUTO) 64 K/uL (140-450); RED BLOOD CELL COUNT(AUTO) 2.98 MIL/uL (4.20-5.40); RED CELL DISTRIBUTION WIDTH 15.4 % (11.6-13.7); WHITE BLOOD COUNT (AUTO) 7.5 K/uL (4.8-10.8)
[2021-03-01 12:23] LABS: MAGNESIUM 2.2 mg/dL (1.8-2.4)
--- NOTE | 2021-03-01 13:30 | NUR ---
AT THIS TIME FAMILY STATES THEY ARE MAKING ARRANGEMENTS FOR PATIENT TO LEAVE TO ANOTHER HOSPITAL. FAMILY STATES THAT PATIENT REQUIRES A HIGHER LEVEL OF CARE. FAMILY STATES THAT THEY HAVE SPOKEN WITH MD ALREADY AND STILL WISH TO LEAVE TO ANOTHER HOSPITAL. MIDDLEWARE ADMINISTRATOR MADE AWARE.
--- NOTE | 2021-03-01 13:45 | NUR ---
PATIENT HAS ORDER FOR NJT. PATIENT'S FAMILY REFUSED. STATED "SHE ISN'T GOING TO BE STAYING ANOTHER NIGHT HERE SO THERE IS NO POINT IN PUTTING THAT TUBE IN". Addendum: 03/01/21 at [address] Baldwin LVN [address] ELKINS ORDERED INSERTION OF NGT.
--- NOTE | 2021-03-01 14:00 | NUR ---
PATIENT FAMILY REQUESTING TO LEAVE HOSPITAL AGAINST MEDICAL ADVISE. EDUCATED FAMILY ON DANGERS OF LEAVING AGAINST [facility]ICAL ADVISE. FAMILY STATED AN UNDERSTANDING OF INFORMATION PROVIDED. WILL BEGIN PAPERWORK FOR AMA. Addendum: 03/01/21 at 1645 by Zulma Baldwin LVN AMENDMENT: THIS NOTE WAS FOR 1600.
--- NOTE | 2021-03-01 16:20 | NUR ---
SPOKE TO FAMILY REGARDING LEAVING AGAINST [facility]ICAL [facility]. FAMILY STATED THEY ALREADY HAD SPOKEN TO MD CHISHOLM: LEAVING AGAINST MEDICAL ADVISE. AGAIN EDUCATED FAMILY AND PATIENT ON DANGERS OF LEAVING AGAINST MEDICAL ADVISE. STATED AN UNDERSTANDING OF ALL INFORMATION PROVIDED. FAMILY REQUEST TO LEAVE IN ROWELL CATHETER AND PICC LINE. EDUCATED FAMILY ON DANGERS OF LEAVING INDWELLING ROWELL CATHETER AND PICC LINE. FAMILY STATED AN UNDERSTANDING AND STATED THEY STILL PREFER TO LEAVE THEM IN. FAMILY SIGNED AMA FORM. REQUEST FOR ASSISTANCE WITH TRANSFER. PATIENT WAS TRANSFERRED USING 5 PEOPLE. PATIENT AND FAMILY LEFT VIA PRIVATE VEHICLE. ALL BELONGINGS TAKEN UPON DISCHARGE.
== END 2021-03-01 16:50 | disposition left against medical advice (07) | DRG 388 ==
LOC: MED 13:45 → MMU 22:32 → MTU 23:13 → MIC 02-22 09:15 → MTU 02-25 17:05
PROVIDERS: ADMIT Internal Medicine; ATTEND Internal Medicine
PROC: 02HV33Z Insertion of Infusion Device into Superior Vena Cava, Percutaneous Approach (ICD-10-PCS; principal; 2021-02-22)
PROC: B548ZZA Ultrasonography of Superior Vena Cava, Guidance (ICD-10-PCS; 2021-02-22)
DX: K56.600 Partial intestinal obstruction, unspecified as to cause (principal); K76.7 Hepatorenal syndrome; G93.41 Metabolic encephalopathy; N17.9 Acute kidney failure, unspecified; E87.0 Hyperosmolality and hypernatremia; K62.5 Hemorrhage of anus and rectum; K52.9 Noninfective gastroenteritis and colitis, unspecified; E78.5 Hyperlipidemia, unspecified; K72.90 Hepatic failure, unspecified without coma; E86.9 Volume depletion, unspecified; K74.60 Unspecified cirrhosis of liver; Z20.822 Contact with and (suspected) exposure to COVID-19; I12.9 Hypertensive chronic kidney disease with stage 1 through stage 4 chronic kidney disease, or unspecified chronic kidney disease; N18.30 Chronic kidney disease, stage 3 unspecified; E87.6 Hypokalemia; K56.7 Ileus, unspecified; R13.10 Dysphagia, unspecified; E66.01 Morbid (severe) obesity due to excess calories; Z90.49 Acquired absence of other specified parts of digestive tract; Z68.38 Body mass index [BMI] 38.0-38.9, adult
CPT/HCPCS: 36415; 36556; 71045; 74018; 74150; 74250; 80048; 80053; 81003; 82140; 82272; 82948; 83036; 83605; 83690; 83735; 84100; 84478; 85025; 87040; 87070; 87081; 92610; 96361; 96374; 96375; 97110; 97112; 97116; 97163-GP; 97530; 99285; C9113; J0360; J1170; J2270; J2405; J2543; J2765; J3475; J3480; J3490; J7060; P9046; Q0092; Q9967